=== PATIENT | male | born 1985 | race Caucasian/White ===

== ENCOUNTER → 2019-09-02 | Outpatient (REF) | payer OTHER ==
[~2019-09-02] MED LIST: No Historical Meds
[2019-09-02 17:33] LABS: BASO # 0.1 10^3/uL (0.0-0.2); BASO % 1.1 % (0.0-1.0); EOS # 0.6 10^3/uL (0.0-0.5); HEMATOCRIT 48.9 % (42.0-52.0); LYMPH # 2.1 10^3/uL (1.5-5.0); LYMPH % 25.6 % (24.0-44.0); MEAN CORPUSCULAR HEMOGLOBIN 31.4 pg (27.0-33.0); MEAN CORPUSCULAR HGB CONC 32.7 g/dl (32.0-36.5); MEAN CORPUSCULAR VOLUME 95.9 fl (80.0-96.0); MONO # 0.7 10^3/uL (0.0-0.8); MONO % 8.7 % (0.0-5.0); NEUTROPHILS # 4.7 10^3/uL (1.5-8.5); NEUTROPHILS % 56.5 % (36.0-66.0); PLATELET COUNT, AUTOMATED 258 10^3/uL (150-450); WHITE BLOOD COUNT 8.3 10^3/uL (4.0-10.0)
[2019-09-02 17:51] LABS: ALBUMIN 3.8 GM/DL (3.2-5.2); ALT/SGPT 36 U/L (12-78); BILIRUBIN,TOTAL 0.3 MG/DL (0.2-1.0); BLOOD UREA NITROGEN 11 MG/DL (7-18); CALCIUM LEVEL 9.4 MG/DL (8.5-10.1); CARBON DIOXIDE LEVEL 27 MEQ/L (21-32); CHLORIDE LEVEL 110 MEQ/L (98-107); CREATININE FOR GFR 0.74 MG/DL (0.70-1.30); FREE T4 1.04 NG/DL (0.76-1.46); GLOMERULAR FILTRATION RATE > 60.0 (>60); GLUCOSE, FASTING 101 MG/DL (70-100); POTASSIUM SERUM 4.4 MEQ/L (3.5-5.1); SODIUM LEVEL 140 MEQ/L (136-145); THYROID STIMULATING HORMONE 0.553 uIU/ML (0.358-3.740); TOTAL PROTEIN 7.1 GM/DL (6.4-8.2)
[2019-09-02 17:53] LABS: FOLATE > 24.0 NG/ML; TOTAL 25(OH) VITAMIN D 24.8 NG/ML (30.0-100.0); VITAMIN B12 LEVEL 482 PG/ML
== END ==
LOC: M SFHCPLAZ 14:19
PROVIDERS: ATTEND Nurse Practitioner Family
DX: R53.82 Chronic fatigue, unspecified (principal); F32.9 Major depressive disorder, single episode, unspecified

== ENCOUNTER → 2021-01-19 | Outpatient (REF) | payer OTHER ==
[~2021-01-19] MED LIST changes: +ZOLO100T
[2021-01-19 17:01] LABS: HEMATOCRIT 49.2 % (42.0-52.0); HEMOGLOBIN 15.7 g/dl (13.5-17.5); MEAN CORPUSCULAR HEMOGLOBIN 29.7 pg (27.0-33.0); MEAN CORPUSCULAR HGB CONC 31.9 g/dl (32.0-36.5); MEAN CORPUSCULAR VOLUME 93.2 fl (80.0-96.0); PLATELET COUNT, AUTOMATED 236 10^3/uL (150-450); RED BLOOD COUNT 5.28 10^6/uL (4.30-6.10); WHITE BLOOD COUNT 8.3 10^3/uL (4.0-10.0)
[2021-01-19 17:18] LABS: ALBUMIN 3.8 GM/DL (3.2-5.2); ALT/SGPT 24 U/L (12-78); BILIRUBIN,TOTAL 0.5 MG/DL (0.2-1.0); BLOOD UREA NITROGEN 16 MG/DL (7-18); CALCIUM LEVEL 8.8 MG/DL (8.5-10.1); CARBON DIOXIDE LEVEL 23 MEQ/L (21-32); CHLORIDE LEVEL 109 MEQ/L (98-107); CREATININE FOR GFR 0.88 MG/DL (0.70-1.30); GLOMERULAR FILTRATION RATE > 60.0 (>60); GLUCOSE, FASTING 92 MG/DL (70-100); POTASSIUM SERUM 4.1 MEQ/L (3.5-5.1); SODIUM LEVEL 140 MEQ/L (136-145); TOTAL PROTEIN 7.1 GM/DL (6.4-8.2)
[2021-01-19 17:25] LABS: TOTAL 25(OH) VITAMIN D 25.6 NG/ML (30.0-100.0)
== END ==
LOC: M WUC 16:05
PROVIDERS: ATTEND Nurse Practitioner Family
DX: H60.11 Cellulitis of right external ear (principal); E55.9 Vitamin D deficiency, unspecified; R07.89 Other chest pain

== ENCOUNTER 2021-03-15 17:39 | Emergency (ER) | payer OTHER ==
[~2021-03-15] VITALS: Ht 172.7 cm; Wt 83.2 kg
[~2021-03-15 17:39] MED LIST changes: -ZOLO100T
[2021-03-15 17:40] VITALS: BP 124/76
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
--- OUTSIDE RECORDS SUMMARY | 2021-03-15 17:48 | CCD ---
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 Name Role Phone NO, PCP Unavailable Unavailable Hospital Lab, Area [facility] Unavailable Unavailable Yossi BARRETT MD Unavailable Unavailable Yossi BARRETT MD Unavailable Unavailable Yossi BARRETT MD Unavailable Unavailable Yossi BARRETT MD Unavailable Unavailable Yossi BARRETT MD Unavailable Unavailable Yossi BARRETT MD Unavailable Unavailable Yossi BARRETT MD Unavailable Unavailable Yossi BARRETT MD Unavailable Unavailable Yossi BARRETT MD Unavailable Unavailable Yossi BARRETT MD Unavailable Unavailable Yossi BARRETT MD Unavailable Unavailable Yossi BARRETT MD Unavailable Unavailable Yossi BARRETT MD Unavailable Unavailable Yossi BARRETT MD Unavailable Unavailable Yossi BARRETT MD Unavailable Unavailable Yossi BARRETT MD Unavailable Unavailable Yossi BARRETT MD Unavailable Unavailable Yossi BARRETT MD Unavailable Unavailable Yossi BARRETT MD Unavailable Unavailable Yossi BARRETT MD Unavailable Unavailable Yossi BARRETT MD Unavailable Unavailable Yossi BARRETT MD Unavailable Unavailable Yossi BARRETT MD Unavailable Unavailable Yossi BARRETT MD Unavailable Unavailable MCMANUS, G EDWARD RPA Unavailable Unavailable MCMANUS, G EDWARD RPA Unavailable Unavailable MCMANUS, G EDWARD RPA Unavailable Unavailable MCMANUS, G EDWARD RPA Unavailable Unavailable MCMANUS, G EDWARD RPA Unavailable Unavailable MCMANUS, G EDWARD RPA Unavailable Unavailable MCMANUS, G EDWARD RPA Unavailable Unavailable MCMANUS, G EDWARD RPA Unavailable Unavailable MCMANUS, G EDWARD RPA Unavailable Unavailable MCMANUS, G EDWARD RPA Unavailable Unavailable MCMANUS, G EDWARD RPA Unavailable Unavailable MCMANUS, G EDWARD RPA Unavailable Unavailable MCMANUS, G EDWARD RPA Unavailable Unavailable MCMANUS, G EDWARD RPA Unavailable Unavailable MCMANUS, G EDWARD RPA Unavailable Unavailable MCMANUS, G EDWARD RPA Unavailable Unavailable MCMANUS, G EDWARD RPA Unavailable Unavailable MCMANUS, G EDWARD RPA Unavailable Unavailable MCMANUS, G EDWARD RPA Unavailable Unavailable MCMANUS, G EDWARD RPA Unavailable Unavailable MCMANUS, G EDWARD RPA Unavailable Unavailable MCMANUS, G EDWARD RPA Unavailable Unavailable MCMANUS, G EDWARD RPA Unavailable Unavailable MCMANUS, G EDWARD RPA Unavailable Unavailable MCMANUS, G EDWARD RPA Unavailable Unavailable MCMANUS, G EDWARD RPA Unavailable Unavailable MCMANUS, G EDWARD RPA Unavailable Unavailable MCMANUS, G EDWARD RPA Unavailable Unavailable MCMANUS, G EDWARD RPA Unavailable Unavailable MCMANUS, G EDWARD RPA Unavailable Unavailable MCMANUS, G EDWARD RPA Unavailable Unavailable MCMANUS, G EDWARD RPA Unavailable Unavailable MCMANUS, G EDWARD RPA Unavailable Unavailable MCMANUS, G EDWARD RPA Unavailable Unavailable MCMANUS, G EDWARD RPA Unavailable Unavailable Chavarria, M Barratt PA Unavailable Unavailable Deon, M Ednaatt PA Unavailable Unavailable Deon, M Ednaatt PA Unavailable Unavailable Deon, Barbara Bishopatt PA Unavailable Unavailable Deon, Barbara Bishopatt PA Unavailable Unavailable Deon, Barbara Bishopatt PA Unavailable Unavailable Deon, Barbara Bishopatt PA Unavailable Unavailable Chavarria, M Ednaatt PA Unavailable Unavailable Chavarria, M Ednaatt PA Unavailable Unavailable Deon, Barbara Bishopatt PA Unavailable Unavailable Deon, Barbara Bishopatt PA Unavailable Unavailable Deon, Barbara Bishopatt PA Unavailable Unavailable Barbara Chavarriaatt PA Unavailable Unavailable Barbara Chavarriaatt PA Unavailable Unavailable Chavarria, M Barratt PA Unavailable Unavailable Chavarria, M Barratt PA Unavailable Unavailable Chavarria, M Barratt PA Unavailable Unavailable Chavarria, M Barratt PA Unavailable Unavailable Chavarria, M Barratt PA Unavailable Unavailable Chavarria, M Barratt PA Unavailable Unavailable Chavarria, M Barratt PA Unavailable Unavailable Chavarria, M Barratt PA Unavailable Unavailable Chavarria, M Barratt PA Unavailable Unavailable Chavarria, M Barratt PA Unavailable Unavailable Chavarria, M Barratt PA Unavailable Unavailable Chavarria, M Barratt PA Unavailable Unavailable Chavarria, M Barratt PA Unavailable Unavailable Chavarria, M Barratt PA Unavailable Unavailable Chavarria, M Barratt PA Unavailable Unavailable NOT, SPECIFIED Unavailable Unavailable Staley, M Christopher PA-C Unavailable Unavailable Staley, M Christopher PA-C Unavailable Unavailable Staley, M Christopher PA-C Unavailable Unavailable Staley, M Christopher PA-C Unavailable Unavailable Staley, M Christopher PA-C Unavailable Unavailable Staley, M Christopher PA-C Unavailable Unavailable Staley, M Christopher PA-C Unavailable Unavailable Staley, M Christopher PA-C Unavailable Unavailable Staley, M Christopher PA-C Unavailable Unavailable Staley, M Christopher PA-C Unavailable Unavailable Staley, M Christopher PA-C Unavailable Unavailable Staley, M Christopher PA-C Unavailable Unavailable Staley, M Christopher PA-C Unavailable Unavailable Staley, M Christopher PA-C Unavailable Unavailable Staley, M Christopher PA-C Unavailable Unavailable Staley, M Christopher PA-C Unavailable Unavailable Staley, M Christopher PA-C Unavailable Unavailable Staley, M Christopher PA-C Unavailable Unavailable Staley, M Christopher PA-C Unavailable Unavailable Staley, M Christopher PA-C Unavailable Unavailable Staley, M Christopher PA-C Unavailable Unavailable Staley, M Christopher PA-C Unavailable Unavailable Staley, M Christopher PA-C Unavailable Unavailable Staley, M Christopher PA-C Unavailable Unavailable Staley, M Christopher PA-C Unavailable Unavailable Staley, M Christopher PA-C Unavailable Unavailable Yossi APPIAH MD Unavailable Unavailable Yossi APPIAH MD Unavailable Unavailable Yossi APPIAH MD Unavailable Unavailable Yossi APPIAH MD Unavailable Unavailable Yossi APPIAH MD Unavailable Unavailable Yossi APPIAH MD Unavailable Unavailable Yossi APPIAH MD Unavailable Unavailable Yossi APPIAH MD Unavailable Unavailable Yossi APPIAH MD Unavailable Unavailable Yossi APPIAH MD Unavailable Unavailable Yossi APPIAH MD Unavailable Unavailable Re-disclosure Warning The records that you are about to access may contain information from federally-assisted alcohol or drug abuse programs. If such information is present, then the following federally mandated warning applies: This information has been disclosed to you from records protected by federal confidentiality rules (42 CFR part 2). The federal rules prohibit you from making any further disclosure of this information unless further disclosure is expressly permitted by the written consent of the person to whom it pertains or as otherwise permitted by 42 CFR part 2. A general authorization for the release of medical or other information is NOT sufficient for this purpose. The Federal rules restrict any use of the information to criminally investigate or prosecute any alcohol or drug abuse patient.The records that you are about to access may contain highly sensitive health information, the redisclosure of which is protected by Article 27-F of the [facility] Public Health law. If you continue you may have access to information: Regarding HIV / AIDS; Provided by facilities licensed or operated by the [facility] Office of Mental Health; or Provided by the [facility] Office for People With Developmental Disabilities. If such information is present, then the following [facility] mandated warning applies: This information has been disclosed to you from confidential records which are protected by state law. State law prohibits you from making any further disclosure of this information without the specific written consent of the person to whom it pertains, or as otherwise permitted by law. Any unauthorized further disclosure in violation of state law may result in a fine or care home sentence or both. A general authorization for the release of medical or other information is NOT sufficient authorization for further disc losure. Encounters Encounter Providers Location Date Indications Data Source(s ) Unknown [address] [facility] [address] 01/24/2021 12:00:00 AM EDT eCW1 ([facility]) Out[place] [address] [facility] [address] 01/19/2021 12:00:00 AM EDT eCW1 ([facility]) Outpatient Attender: [facility] 12/19/2020 02:0 5:00 PM EDT [facility] Emergency Attender: SHELLEY Perla MDConsultant: PCP NOConsultant: SPECIFIED NOT 12/19/2020 01:46:00 PM EDT - 12/19/2020 05:26:00 PM EDT [facility] Patient discharged. Outpatient Attender: YANELY MCMANUS [facility] 12/17 05:03:01 PM EDT - 12/17/2020 05:54:08 PM EDT [facility] ([facility] ) [place] [address] [facility] [address] 12/17/2020 12:00:00 AM EDT eCW1 ([facility]) Outpatient 12/13/2020 06:25:38 PM EDT [facility] ([facility]) Outpatient Attender: YANELY MCMANUS [facility] 12/11 10:57:58 AM EDT - 12/11/2020 01:15:27 PM EDT [facility] ([facility] ) Outpatient Attender: Apolinar OBANDO-Tushar: COLTON BARRETT MD 12/10/2020 04:27:05 PM EDT [facility] ([facility]) Unknown [address] [facility] [address] 10/13/2020 12:00:00 AM EDT eCW1 ([facility]) Unknown [address] [facility] [address] 09/17/2020 12:00:00 AM EDT eCW1 ([facility]) Outpatient Attender: Abe OBANDO Physical Therapy 12:15:00 PM EST [facility] ([facility]) TeleMedicine Phone E/M by Phys 11-20 Min [address] [place] [address] 03/12/2020 12:00:00 AM EDT eCW1 ([facility]) Outpatient Attender: Abe OBANDO Physical Therapy 01:15:00 PM EDT [facility] ([facility]) [place] [address] [facility] [address] 02/27/2020 12:00:00 AM EDT eCW1 ([facility]) Immunizations Vaccine Date Status Description Data Source(s) COVID-19 dose #1 given elsewhere Unspecified 12/17/2020 03:1 2:00 PM EDT completed eCW1 ([facility]) COVID-19 dose #2 given elsewhere Unspecified 12/17/2020 03:1 2:00 PM EDT completed eCW1 ([facility]) COVID-19 dose #1 given elsewhere Unspecified 12/17/2020 03:1 2:00 PM EDT completed eCW1 ([facility]) COVID-19 dose #2 given elsewhere Unspecified 12/17/2020 03:1 2:00 PM EDT completed eCW1 ([facility]) COVID-19 dose #1 given elsewhere Unspecified 12/17/2020 03:1 2:00 PM EDT completed eCW1 ([facility]) COVID-19 dose #2 given elsewhere Unspecified 12/17/2020 03:1 2:00 PM EDT completed eCW1 ([facility]) COVID-19 VACCINE Pfizer 10/19/2020 12:00:00 AM EDT completed [facility] Vaccine Series Complete: YESThis Data wa s Submitted to [facility]. COVID-19 VACCINE Pfizer 09/28/2020 12:00:00 AM EDT completed [facility] Vaccine Series Complete: NOThis Data was Submitted to [facility]. Medications Medication Brand Name Start Date Product Form Dose Route Admi nistrative Instructions Pharmacy Instructions Status Indications Reaction Description Data Source(s) 800-160 mg 12/11/2020 12:00:00 AM EDT tablet 20 TAKE ONE TABLET BY MOUTH TWICE A DAY FOR 10 DAYS TAKE ONE TABLET BY MOUTH TWICE A DAY FOR 10 DAYS SOLD: 12/12/2020 [facility] 50 mg 12/09/2020 12:00:00 AM EDT tablet 30 TAKE ONE TABLET BY MOUTH EVERY DAY TAKE ONE TABLET BY MOUTH EVERY DAY SOLD: 12/12/2020 [facility] 50 mg 11/16/2020 12:00:00 AM EDT tablet 30 TAKE ONE TABLET BY MOUTH EVERY DAY TAKE ONE TABLET BY MOUTH EVERY DAY SOLD: 11/21/2020 [facility] 875 mg 10/13/2020 12:00:00 AM EDT tablet 14 TAKE ONE TABLET BY MOUTH EVERY 12 HOURS TAKE ONE TABLET BY MOUTH EVERY 12 HOURS SOLD: 10/13/2020 [facility] 50 mg 10/09/2020 12:00:00 AM EDT tablet 30 TAKE ONE TABLET BY MOUTH EVERY DAY TAKE ONE TABLET BY MOUTH EVERY DAY SOLD: 10/12/2020 [facility] 50 mg 08/30/2020 12:00:00 AM EDT tablet 30 TAKE ONE TABLET BY MOUTH EVERY DAY TAKE ONE TABLET BY MOUTH EVERY DAY SOLD: 09/02/2020 [facility] 50 mg 06/22/2020 12:00:00 AM EST tablet 30 TAKE ONE TABLET BY MOUTH EVERY DAY TAKE ONE TABLET BY MOUTH EVERY DAY SOLD: 07/07/2020 [facility] 50 mg 05/21/2020 12:00:00 AM EST tablet 30 TAKE ONE TABLET BY MOUTH EVERY DAY TAKE ONE TABLET BY MOUTH EVERY DAY SOLD: 06/04/2020 [facility] 1,250 mcg (50,000 unit) 03/26/2020 12:00:00 AM EST capsule 4 TAKE ONE CAPSULE BY MOUTH EVERY WEEK WITH A MEAL TAKE ONE CAPSULE BY MOUTH EVERY WEEK WITH A MEAL SOLD: 07/18/2020 [facility] 1,250 mcg (50,000 unit) 03/26/2020 12:00:00 AM EST capsule 4 TAKE ONE CAPSULE BY MOUTH EVERY WEEK WITH A MEAL TAKE ONE CAPSULE BY MOUTH EVERY WEEK WITH A MEAL SOLD: 03/26/2020 [facility] 1,250 mcg (50,000 unit) 03/26/2020 12:00:00 AM EST capsule 4 TAKE ONE CAPSULE BY MOUTH EVERY WEEK WITH A MEAL TAKE ONE CAPSULE BY MOUTH EVERY WEEK WITH A MEAL SOLD: 06/04/2020 [facility] 50 mg 03/13/2020 12:00:00 AM EDT tablet 30 TAKE ONE TABLET BY MOUTH EVERY DAY TAKE ONE TABLET BY MOUTH EVERY DAY SOLD: 03/26/2020 [facility] Sertraline 50 MG Oral Tablet Sertraline HCl 50 MG Sertraline HCl 50 MG 03/12/2020 12:00:00 AM EDT 1.0 {tablet} active Sertraline HCl 50 MG eCW1 ([facility]) Sertraline 50 MG Oral Tablet Sertraline HCl 50 MG Sertraline HCl 50 MG 03/12/2020 12:00:00 AM EDT 1.0 {tablet} active Sertraline HCl 50 MG eCW1 ([facility]) 500 mg 02/28/2020 12:00:00 AM EDT tablet 60 TAKE ONE TABLET BY MOUTH TWICE A DAY TAKE ONE TABLET BY MOUTH TWICE A DAY SOLD: 02/28/2020 [facility] Naproxen 500 MG Oral Tablet Naproxen 02/27/2020 12:00:00 AM EDT active [facility] ([facility]) 25 mg 02/27/2020 12:00:00 AM EDT tablet 30 TAKE ONE TABLET BY MOUTH EVERY EVENING TAKE ONE TABLET BY MOUTH EVERY EVENING SOLD: 02/28/2020 [facility] 4 % 11/14/2019 12:00:00 AM EDT adhesive patch,medicate d 10 APPLY ONCE PER DAY FOR 15 DAY, KEEP ON FOR 12 HOURS AND THEN KEEP OFF FOR 12 HOURS APPLY ONCE PER DAY FOR 15 DAY, KEEP ON FOR 12 HOURS AND THEN KEEP OFF FOR 12 HOURS SOLD: 01/18/2020 [facility] Escitalopram 10 MG Oral Tablet ESCITALOPRAM OXALATE 10/18/2019 1 2:00:00 AM EDT tablet 30 TAKE ONE TABLET BY MOUTH EVERY D AY TAKE ONE TABLET BY MOUTH EVERY DAY SOLD: 01/18/2020 [facility] Insurance Providers Payer name Policy type / Coverage type Policy ID Covered libertarian ID Covered libertarian's relationship to hart Policy Hart Plan Information Medicaid S [id number] S [id number] [facility] P [id number] S [id number] [employer] (FIRST ADVANTAGE) emp [id number] Employee [id number] [employer] 136 emp [id number] Employee [id number] [employer] [place] emp [id number] Employee [id number] [facility] 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 [id number] Self [id number] [facility] 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 [id number] Self [id number] [facility] XIX -[id number] 18 [id number] [facility] [id number] SP [id number] [facility] COMMUNITY PLAN [facility] [id number] SP [id number] SELF PAY UNAVAILABLE SP UNAVAILA BLE [facility] [id number] SP [id number] [facility] [id number] SP [id number] [facility] [id number] SP [id number] [facility] O [id number] S [id number] O UNAVAILABLE UNAVAILA BLE [facility] HEA [id number] S [id number] [employer] XIX -[facility] [id number] Problems, Conditions, and Diagnoses Code Display Name Description Problem Type Effective Dates Data Source(s) X02514 CONTACT WITH AND SUSPECTED EXPOSURE TO C OVID-19 CONTACT WITH AND SUSPECTED EXPOSURE TO COVID-19 Diagnosis 12/19/2020 01:46:00 PM EDT [facility] [id number] Nicotine dependence, cigarettes, uncompl icated Nicotine dependence, cigarettes, uncomplicated Diagnosis 12/19/2020 01:46:00 PM EDT [facility] R509 Fever, unspecified Fever, unspecified Diagnosis 01:46:00 PM EDT [facility] Z87.442 [id number] History of kidney stones Problem 12/17/2020 12:00:00 AM EDT eCW1 ([facility]) Surgeries/Procedures No Information Results ID Date Data Source [id number] 12/19/2020 01:46:00 PM EDT [facility] 1 OrderSheet [facility] Emergency Department [address] [place] [address] Phone #: ext- [phone] 12/19/2020 13:42 Patient: YANELY BOWENS Sex: M : 1985 Age: 35yWEIGHT:79.8 kg (S) HEIGHT:68 inches (S) BMI:26.8ALLERGIES: No Known Drug AllergyCHIEF COMPLAINT: feverDIAGNOSIS: Fever, Severe acute respiratory syndrome coronavirusLAB ORDERSOrder Description Priority Entered Acknowledged InitialedCBC w Diff STAT 13:59 12/19/2020 14:26 Shelley Neville RN ;CMP STAT 13:59 12/19/2020 14:26 Shelley Neville RN ;Sed. Rate STAT 13:59 12/19/2020 14:26 Shelley Neville RN ;Urinalysis (Clean STAT 13:59 12/19/2020 15:23 DorisCatch) Shelley Appiah RN ;Cholesterol STAT 13:59 12/19/2020 Initialed: 14:00 Shelley Appiah Victoria Cancelled: Wrong Order 14:00 ; Shelley AppiahBlood Culture STAT 14:00 14:26 [id number] X2 (Sched Shelley Appiah RN14:00 12/19/2020) ;Blood Culture STAT 14:00 12/19/2020 14:26 [id number] X2 (Sched Shelley Appiah RN14:10 12/19/2020) ;Lactic Acid STAT 14:00 12/19/2020 14:26 Shelley Neville RN ;COVID-19 CAH STAT 16:12 12/19/2020 Initialed: 16:16 Shelley Appiah(Symptomatic as Shelley Appiah Cancelled: Wrong Order 16:16Defined by [facility]) ; Shelley Appiah(12/12/20) (Not FirstTest) (NotHospitalized) (Not) (NotResident in 2 OrderSheet [facility] Emergency Department [address] [place] [address] Phone #: ext- [phone] 12/19/2020 13:42 Patient: YANELY BOWENS Sex: M : 1985 Age: 35yCongregate CareSetting) (NotEmployed inHealthcare Setting)CORONAVIRUS STAT 16:17 12/19/2020 17:14 DorisCOVID-19 Shelley Appiah RN(Symptomatic as ;Defined by CDC)(12/12/20) (Not FirstTest) (NotHospitalized) (Not) (NotResident inCongregate CareSetting) (NotEmployed inHealthcare Setting)DIAGNOSTIC STUDY ORDERSOrder Description Priority Entered Acknowledged InitialedChest Portable 1 STAT 14:20 12/19/2020 14:26 Shelley Guzman RN(Oxygen?(No)) ; Reason for Study: feverMEDICATION/IV/DRIP/FLUID ORDERSOrder Description Priority Entered Acknowledged InitialedNS IV Bolus 30 14:11 12/19/2020 15:25 DorismL/kg over 1 hour: Shelley Appiah RN: Bolus 30 mL/kg ;(X1)Tylenol PO 650 mg 14:20 12/19/2020 15:23 Camila(NOW) Shelley Appiah RN ;GENERAL ORDERSOrder Description Priority Entered Acknowledged InitialedSaline Lock 13:59 12/19/2020 15:23 Shelley Neville RN ;[Electronically signed by Camila Roth RN (17:30 12/19/2020)][Stephanie ctronically signed by Shelley Appiah (18:33 12/19/2020)][Electronically locked by Camila Roth RN (17:30 12/19/2020)] 3 OrderSheet [facility] Emergency Department [address] [place] [address] Phone #: ext- [phone] 12/19/2020 13:42 Patient: YANELY BOWENS Sex: M : 1985 Age: 35y Name Value Range Interpretation Code Description Data Malena rce(s) Supporting Document(s) ID Date Data Source [id number] 12/19/2020 01:46:00 PM EDT [facility] 1 Medication Reconciliation Report [facility] Emergency Department [address] [place] [address] Phone #: ext [phone] 12/19/2020 13:42 Patient: YANELY BOWENS Sex: M : 1985 Age: 35yWeight: 79.8 kgHeight/Length: 68 in.BMI: 26.8ALLERGIES: No Known Drug AllergyThe patient's Home Medications are listed below:THE FOLLOWING MEDICATIONS NEED TO BE RECONCILED: Bactrim DS Oral (800- 160 mg) 1 tablet, 2x a day, last dose: 12/19 Vitamin D Oral IU, once a week Zoloft Oral (100 mg) 1 tablet, dailyThe source(s) of the original Home Medication information:Not obtained.The following Medications were given to the patient in the Emergency Department:Tylenol [PO] PO 650 mg, administered: 15:13 12/19/2020IV NS w/ bolus IV Fluids bolus 1000 mL over 1 hour(s), then 1000 mL/hr, administered: 15:19 12/19/2020The following Medications were prescribed to the patient:None. Name Value Range Interpretation Code Description Data Malena rce(s) Supporting Document(s) ID Date Data Source [id number] 12/19/2020 01:46:00 PM EDT [facility] 1 Medication Administration Record [facility] Emergency Department [address] [place] [address] Phone #: ext [phone] 12/19/2020 13:42 Patient: YANELY BOWENS Sex: M : 1985 Age: 35yWeight: 79.8 kgHeight/Length: 68 inBMI: 26.8ALLERGIES: No Known Drug Allergy Date/Time Medication Administered Medication OrderedStart IV NS W/ BOLUS NS IV Bolus 30 mL/kg over 1 hour:15:19 12/19/2020 Dose: IV Fluids : Bolus 30 mL/kg (X1)Camila Roth RN Rate: 1000 mL/hr over 1 hour(s)---- Bolus: 1000 mL over 1 hour(s)Stop Dispensed: 1000 mL bag16:19 12/19/2020 Site: #1 right Willa Roth RNGiven TYLENOL [PO] (APAP) Tylenol PO 650 mg (NOW)15:13 12/19/2020 Dose: 650 mg Tablets Dirk Roth RN Name Value Range Interpretation Code Description Data Malena rce(s) Supporting Document(s) ID Date Data Source [id number] 12/19/2020 01:46:00 PM EDT [facility] 1 General Instructions [facility] Emergency Department [address] [place] [address] Phone #: ext- [phone] 12/19/2020 13:42 Patient: YANELY BOWENS Sex: M : 1985 Age: 35y Acute fever Coronavirus COVID-19 presumed (confirmatory testing pending).INSTRUCTIONS Alternate Tylenol (Acetaminophen) and Motrin (Ibuprofen) for fever, temperature. Take according to label instructions. Do not work for ten days. (your CBC, CXR and urinalysis were normal. we have no source of your fever. we are testing you for COVID to make sure this is not the source of your fever. quarantine yourself x 10 days or until results of COVID comes back negative). Follow-up: Follow up with your healthcare provider in three days if not better. Reason for referral: evaluation. Summary of care provided to patient via paper. ADDITIONAL INFORMATIONFebrile Illness with Uncertain Cause (Adult)You have a fever, but the cause is unknown. A fever is the body's natural reaction to an illness suchas infection due to a virus or bacteria. Sometimes other conditions such as cancer or immunediseases can cause fever. This might be more likely if your fever has lasted for more than a week or2. In most cases, the higher temperature itself isn't harmful. It actually helps the body fight infections.A fever doesn't need to be treated unless you feel very uncomfortable.Sometimes a fever can be an early sign of a more serious infection. So follow up if your conditiongets worse.Home careUnless given other instructions by your healthcare provider, follow these guidelines when caring foryourself at home.General care If your symptoms are not severe, rest at home for the first 2 to 3 days. When you are active again, don't let yourself get too tired. 2 General Instructions [facility] Emergency Department [address] [place] [address] Phone #: ext- [phone] 12/19/2020 13:42 Patient: YANLEY BOWENS Sex: M : 1985 Age: 35y For your overall health, don't smoke. Also stay away from secondhand smoke. You may not feel like eating too much. So a light diet is fine. Stay hydrated by drinking 6 to 8 glasses of fluids per day. This includes water, soft drinks, sports drinks, juices, tea, or soup. If you have congestion, extra fluids will help loosen secretions in the nose and lungs.Medicines You can take acetaminophen or ibuprofen for pain or to lower your temperature, unless you were given a different medicine to use. If you have chronic liver or kidney disease or have ever had a stomach ulcer or gastrointestinal bleeding, talk with your healthcare provider before using these medicines. Also talk with your provider if you are taking medicine to prevent blood clots. Don't give aspirin to anyone younger than age 19 unless directed by the provider. It may cause a serious illness called Ricco syndrome. This most often affects the brain and liver. If you were given antibiotics for an infection, take them until they are used up, or your healthcare provider tells you to stop. It's important to finish the antibiotics even if you feel better. This is to make sure the infection has cleared. Antibiotics are not often given for a viral infection or a fever with an unknown cause. Pnbi-fle-xusebaf medicines will not shorten the length of the illness. But they may be help with symptoms. These include cough, sore throat, or nasal and sinus congestion. Ask your pharmacist for product suggestions. Don't use decongestants if you have high blood pressure.Follow-up careFollow up with your healthcare provider, or as advised. If a culture or other lab tests were done, you will be told if your treatment needs to be changed. Call your healthcare provider as directed for the results. If X-rays, a CT scan, MRI, or an ultrasound were done, a specialist will review them. You will be told of any findings that may affect your care. Call your healthcare provider as directed for the results.Call [phone] any of these occur: Trouble breathing or swallowing, or wheezing Chest pain Confusion Extreme dr owsiness or trouble waking up 3 General Instructions [facility] Emergency Department [address] [place] [address] Phone #: ext- [phone] 12/19/2020 13:42 Patient: YANELY BOWENS Sex: M : 1985 Age: 35y Fainting or loss of consciousness Fast heart rate Low blood pressure Vomiting blood, or large amounts of blood in stool SeizureWhen to get medical adviceCall your healthcare provider right away if any of these occur: Cough with lots of colored sputum (mucus) or blood in your sputum Severe headache Face, neck, throat, or ear pain Feeling drowsy Belly pain Repeated vomiting or diarrhea; bloody diarrhea Joint pain or a new rash B urning when urinating Fever of 100.4F (38C) or higher, or as directed by your provider Shaking chills Feeling weak or dizzy [employer]. [address] [place] [address]. All rights reserved. This information is not intended as asubstitute for professional medical care. Always follow your healthcare professional's instructions.Fever Control (Adult)A fever is a normal reaction of your body to an illness. The temperature itself usually isn't harmful. Itactually helps your body fight infections. You don't need to treat a fever unless you feel veryun comfortable.Home careFollow these tips to take care of yourself at home: 4 General Instructions [facility] Emergency Department [address] [place] [address] Phone #: ext- [phone] 12/19/2020 13:42 Patient: YANELY BOWENS Sex: M : 1985 Age: 35y If you feel warm, check your temperature. Dress in light clothing. This will help you lose extra body heat through your skin. The fever will go up if you wear extra layers or wrap in blankets. Fever causes your body to lose water through evaporation. Drink plenty of fluids. These include water, juice, clear sodas, crissy moiz, or lemonade.Fever medicinesYou can take acetaminophen every 4 to 6 hours if: You feel very uncomfortable Your oral temperature is 100.4F (38C) or higherIf you can't take or keep down oral medicine, ask your pharmacist for acetaminophen suppositories.You don't need a prescription for these.If the fever doesn't get better within 1 hour after you take acetaminophen, take ibuprofen. If thisworks, keep taking the ibuprofen every 6 to 8 hours.If you have chronic liver or kidney disease, talk with your healthcare provider before taking thesemedicines. Also talk with your provider if you ever had a stomach ulcer or GI (gastrointestinal)bleeding.If either medicine alone doesn't keep the fever down, you may switch off between the 2 medicinesevery 3 to 4 hours. But do this only if your healthcare provider has told you to. For example, takeibuprofen. Wait 3 hours. Then take acetaminophen. Wait 3 hours. Take ibuprofen, and so on. Followyour provider's instructions exactly.Don't give aspirin to anyone younger than age 19 who is ill with a fever. Aspirin can cause seriousside effects such as liver damage and Ricco syndrome. Although rare, Ricco syndrome is a veryserious illness usually found in children younger than age 15. The syndrome is closely linked to theuse of aspi rin or aspirin-containing medicine during viral infection.Follow-up careFollow up with your healthcare provider if you don't get better after 48 hours.When to seek medical adviceCall your healthcare provider right away if any of these occur: Fever, as directed by your healthcare provider, or: o Fever of 100.4F (38C) or above lasting for 24 to 48 hours 5 General Instructions [facility] Emergency Department [address] [place] [address] Phone #: ext- [phone] 12/19/2020 13:42 Patient: YANELY BOWENS Sex: M : 1985 Age: 35y o Fever lasting more than 3 days, even without other symptoms o Fever that happens after visiting a foreign country o Fever that happens within a month after visiting a country with malaria. Malaria is a serious illness. A fever can still be malaria even if you took medicine to prevent it. The medicine does not work in all cases o If you experience unexplained fever and your immune system is compromised such as by immune suppressing drugs, stem cell or organ transplant, HIV/AIDS, or cancer Confusion or trouble thinking Headache or stiff neck Flat, small, purplish red spots on your skin Low blood pressure Fast heart rate Fast (rapid) breathing You are You just had surgery, another medical procedure, or were just discharged from the hospital Use of medicines that suppress the immune system (immunosuppressants). These include steroids like prednisone, cancer medicines, and organ transplant rejection medicines. If you are not sure about whether your medicines suppress your immune system, ask your healthcare provider.Call 911Someone should call 911 if you: Are having trouble breathing or shortness of breath Are unresponsiveImportant reminderCall your healthcare provider if you get a fever after visiting a place where infectious diseases arecommon. Many people flower buncher or picker a cold or other virus while traveling. This usually goes away without aproblem. But, some places have more serious diseases. Fever with certain other symptoms maymean you have a serious illness. Symptoms to watch for include diarrhea, skin rashes, insect bites,and skin boils, or infections. Your provider may ask you: 6 General Instructions [facility] Emergency Department [address] [place] [address] Phone #: ext- [phone] 12/19/2020 13:42 --- Patient: YANELY BOWENS Sex: M : 1985 Age: 35y What you did on your trip How long you were there Where you travelled and where you stayed (hotel, [facility] house, tent) What you ate and drank If you were bitten by insects or other bugs If you swam in freshwater If you had sex or got a tattoo or piercing while you were thereCheck the CDC to get more information about specific infectious diseases in the areas you havetraveled. 8834-2792 [employer]. [address] [place] [address]. All rights reserved. This information is not intended as asubstitute for professional medical care. Always follow your healthcare professional's instructions.Understanding Coronavirus Disease 2019 (COVID-19)Coronavirus disease 2019 (COVID-19) is a virus that causes a respiratory illness. It is caused by acoronavirus called 2019 novel coronavirus (2019-nCoV). There are many types of coronavirus.Coronaviruses are a very common cause of bronchitis. They may sometimes cause lung infection(pneumonia). Symptoms can range from mild to severe respiratory illness. These viruses are alsofound in some animals. COVID- 19 was first found in people in [facility], in late 2019. In 2020,several cases of COVID-19 have been confirmed in the [place] COVID-19 is a rapidly- emerginginfectious disease. This means that scientists are actively researching it. There are informationupdates regularly.Public health officials are working to find the source. How the virus spreads is not yet fullyunderstood, but it seems to spread and infect people fairly easily. Some people who have beeninfected in an area may be unsure how or where they became infected. The virus may be spreadthrough droplets of fluid that a person coughs or sneezes into the air. It may be spread if you touch asurface with virus on it, such as a handle or object, and then touch your eyes, nose, or mouth.For the latest information, visit the CDC website at www.cdc.gov/coronavirus/2019-ncov.What are the symptoms of COVID-19?Some people have no symptoms or mild symptoms. Symptoms may appear 2 to 14 days aftercontact with the virus. Symptoms can include: Fever 7 General Instructions [facility] Emergency Department [address] [place] [address] Phone #: ext- [phone] 12/19/2020 13:42 Patient: YANELY BOWENS Sex: M : 1985 Age: 35y Coughing Trouble breathingWhat are possible complications from COVID-19?In many cases, this virus can cause infection (pneumonia) in both lungs. In some cases, this cancause .How is COVID-19 diagnosed?Your healthcare provider will ask about your symptoms. He or she will also ask about your recenttravel and contact with sick people. If your healthcare provider thinks you may have COVID-19, waldo alvarado will work closely with your local health department and the CDC on testing. Follow all instructionsfrom your healthcare provider. COVID-19 is diagnosed by: Nasal and throat swab. A cotton-tipped swab is wiped inside your nose or throat. This is done to check for viruses in your nasal mucus. Sputum culture. A small sample of mucus coughed from your lungs (sputum) is collected if you have a cough. It is checked for the virus.How is COVID-19 treated?There is currently no medicine to treat the virus. Treatment is done to help your body while it fightsthe virus. This is known as supportive care. Supportive care may include: Pain medicine. These include acetaminophen and ibuprofen. They are used to help ease pain and reduce fever. Bed rest. This helps your body fight the illness.For severe illness, you may need to stay in the hospital. Care during severe illness may include: IV (intravenous) fluids.These are given through a vein to help keep your body hydrated. Oxygen. Supplemental oxygen or ventilation with a breathing machine (ventilator) may be given. This is done so you get enough oxygen in your body.Are you at risk for COVID-19?You are at risk for infection if you've been to a place where people have been sick with this virus or ifthere are people with COVID-19 in your area. You are at risk if you: Recently traveled to an area with a COVID-19 outbreak Had contact with a sick person who recently traveled to an area with a COVID-19 outbreak 8 General Instructions [facility] Emergency Department [address] [place] [address] Phone #: ext- [phone] 12/19/2020 13:42 Patient: YANELY BOWENS Sex: M : 1985 Age: 35y Had contact with a person who was diagnosed with or who may have COVID-19How can COVID-19 be prevented?There is no vaccine yet. The best prevention is to not have contact with the virus. The CDC advisesthat people should not travel to areas where there are COVID-19 outbreaks right now for any reasonthat is not urgent. For the most current CDC travel advisories, visit the CDC website atwww.cdc.gov/coronavirus/2019-ncov/travelers.To help prevent spreading the infection, wash your hands often, or use an alcohol-based hand biological plant operator.The CDC advises that you shouldn't wear a face mask if you are not sick.To protect yourself from COVID-19: Wash your hands often with soap and clean, running w ater for at least 20 seconds. If you don't have access to soap and water, use an alcohol-based hand biological plant operator often. Make sure it has at least 60% alcohol. 9 General Instructions [facility] Emergency Department [address] [place] [address] Phone #: ext- [phone] 12/19/2020 13:42 Patient: YANELY BOWENS Sex: M : 1985 Age: 35y Don't touch your eyes, nose, or mouth unless you have clean hands. Don't have contact with people who are sick. Follow local instructions about being in public. For example, you may be told to not use public transport for a period of time. Experts don't know if animals spread 2019-nCoV. But it's always a good idea to wash your hands after touching any animals. Don't touch animals that may be sick. Don't share eating or drinking tools with sick people. Don't kiss someone who is sick. Clean surfaces often with disinfectant.If you were in an area with COVID-19 in the last 14 days: Call your healthcare provider. He or she can talk with local health staff to see what action may be needed. Follow all instructions from your provider. Take your temperature every morning and evening for at least 14 days. This is to check for fever. Keep a record of the readings. Keep watch for symptoms of the virus. Tell your provider right away if you have symptoms. Stay home if you are sick for any reason.If you were in an area with COVID-19 and have a fever or other symptoms: Stay home. Don't panic. Keep in mind that other illnesses can cause similar symptoms. Stay away from work, school, and public places. Limit physical contact with family members. Don't kiss anyone or share eating or drinking utensils. Clean surfaces you touch with disinfectant. This is to help prevent the virus from spreading. Cough or sneeze into a tissue, then throw away the tissue in the trash. Or cough or sneeze into the bend of your elbow. Wear a face mask. Call your healthcare provider. Explain that you have been exposed to COVID-19 and have symptoms. Do this before going to any hospital. Wait for instructions. Keep in mind that healthcare staff may wear protective equipment such as masks, gowns, 10 General Instructions [facility] Emergency Department [address] [place] [address] Phone #: ext- [phone] 12/19/2020 13:42 Patient: YANELY BOWENS Sex: M : 1985 Age: 35y gloves, and eye protection. You may be put in a separate room. This is to prevent the possible virus from spreading. Tell the healthcare staff about recent travel. This includes local travel on public transport. Staff may need to find other people you have been in contact with. Follow all instructions the healthcare staff give you.If you have been diagnosed with COVID-19 Stay home. Don't leave your home unless you need to get medical care. Follow all instructions from your healthcare provider. Call your [facility] provider's office before going. They can prepare and give you instructions. This will help prevent the virus from spreading. Don't go to work, school, or public areas. Don't use public transport or taxis. Stay away from other people in your home. Wear a face mask. This is to protect other people from your germs. They do not need to wear face masks. Don't share household items or food. Cover your face with a tissue when you cough or sneeze. Throw the tissue away. Then wash your hands. Wash your hands often.Caregivers should: Follow all instructions from healthcare staff. Wear protective clothing as advised. Make sure the sick person wears a mask. Wash hands often. Keep track of the sick person's symptoms. Clean surfaces, fabrics, and laundry thoroughly. Keep other people away from the sick person. 11 General Instructions [facility] Emergency Department [address] [place] [address] Phone #: ext- [phone] 12/19/2020 13:42 Patient: YANELY BOWENS Sex: M : 1985 Age: 35yWhen to call your healthcare providerCall your healthcare provider: If you've recently traveled and have symptoms If you have been diagnosed with COVID-19 and your symptoms are worse [phone] [employer]. [address] [place] [address]. All rights reserved. This information is not intended as asubstitute for professional medical care. Always follow your healthcare professional's instructions. You have been given the following additional information: Febrile Illness, Uncertain Cause (Adult) Fever Control (Adult) Coronavirus Disease 2019 (COVID- 19) Do not work for ten days.(Electronically signed by Shelley Appiah 05/2020 18:33) Name Value Range Interpretation Code Description Data Malena rce(s) Supporting Document(s) ID Date Data Source [id number] 12/19/2020 01:46:00 PM EDT [facility] 1 Clinical Report - Nurses [facility] Emergency Department [address] [place] [address] Phone #: ext- [phone] 12/19/2020 13:42 Patient: YANELY BOWENS Sex: M : 1985 Age: 35yTRIAGEArrived by private vehicle. Historian: patient.Triage time: 14:12/19/2020. Acuity: LEVEL 3.Chief Complaint: RIGHT EAR PAIN.14:04 12/19/20. Alert. No acute distress.Onset. (October 28). ( Right outer ear pain, swelling began 10/28, denies trauma, friend "lanced 2 days agoclear fluid returns" has been taking Bactrim. Fever intermittent x 1 week). He has had fever (103). Hehas had photophobia and a skin rash. 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 SEPSIS SCREEN NEGATIVE.No suspected or confirmed signs of infection present. --14:21 12/19/20 Camila Roth RN14:04 12/19/20. BP: 122/77. MAP: 92. HR: 97. RR: 16. O2 saturation: 99%. Temp: 100.7 F. Pain levelnow: 6/10. Describes the quality as aching. It has been constant. --14:21 12/19/20 Camila Roth RN.Weight: 79.8 kg stated. Height/Length: 68 inches Per Patient. BMI: 26.8. --14:03 12/19/20 Camila Roth RN.MedicationsBactrim DS Oral (Tablet 800-160 mg) 1 tablet, 2x a day, last dose 12/19. --14:10 12/19/20 Camila Roth RN Zoloft Oral (Tablet 100 mg) 1 tablet, daily. --14:10 12/19/20 Camlia Roth RN Vitamin D Oral IU, once a week. --14:11 12/19/20 Camila oRth RN.AllergiesNo Known Drug Allergy. --14:11 12/19/20 Camila Roth RN.PROBLEMS:no known problems.ADDITIONAL SURGERIES:no known surgeries.Scnpcqi24:04 12/19/20. 2 Clinical Report - Nurses [facility] Emergency Department [address] [place] [address] Phone #: ext- [phone] 12/19/2020 13:42 Patient: YANELY BOWENS Sex: M : 1985 Age: 35y PAST MEDICAL HX: Immunizations: up-to-date and (had COVID vaccine). SOCIAL HX: Light tobacco smoker (cigarette)- less than 1/2 a pack per day. Occasional alcohol use. No drug use. He was offered HIV testing but declined and hepatitis C testing but declined. He has not traveled outside the [place] Infectious disease exposure: No infectious disease exposure. The patient was not exposed to Coronavirus. (Denies travel). Patient is not a known carrier of tuberculosis, hepatitis, HIV, MRSA or VRE. Patient is not a known carrier of CRE. SELF HARM ASSESSMENT: Self harm assessment was performed. The patient answered "no" to the question(s) "Do you have thoughts of harming or killing yourself?" and "Have you recently had thoughts about harming or killing others?". ABUSE ASSESSMENT: Abuse assessment. The patient had positive responses to the question(s) "Do you feel safe in your home?" (yes). Abuse denied. No report of abuse. NUTRITIONAL RISK ASSESSMENT: The nutritional risk assessment revealed no deficiencies. FUNCTIONAL ASSESSMENT: Functional assessment: no impairments noted. LEARNING NE EDS ASSESSMENT: The learning needs assessment revealed no barriers. FALL RISK ASSESSMENT: Fall risk assessment completed. No risk factors identified. SKIN INTEGRITY ASSESSMENT: Skin integrity risk assessment completed. No skin integrity risk identified. --14:21 12/19/20 Camila Roth RN. Interventions 14:12/19/20. To treatment room. Ambulatory by family. to room 1B. --14:21 12/19/20 Camila Roth RN.PHYSICAL [id number]:12/19/20.GENERAL / NEURO / PSYCH: Alert. Appears in no acute distress.HEENT: No facial asymmetry noted. Erythema and pain upon movement of the right auricle.RESPIRATORY: Respirations not labored.SKIN: Skin is warm and dry. --14:14 12/19/20 Camila Roth RN.NURSING PROGRESS NOTES14:12/19/20. Head of bed elevated. Two patient identifiers checked. Call light placed in reach. Bedplaced in lowest position. Brakes of bed on. Patient ready for evaluation- ED physician notified. --14: Camila Roth RN 15:13 12/19/2020 Tylenol (APAP) PO Tablets 650 mg given. Allergies verified and confirmed 5 rights. 3 Clinical Report - Nurses [facility] Emergency Department [address] [place] [address] Phone #: ext- [phone] 12/19/2020 13:42 Patient: YANELY BOWENS Sex: M : 1985 Age: 35y Information reviewed with patient including reason for taking this medication, signs of allergic reaction and precautions. Verbalizes understanding. --15:23 12/19/20 Camila Roth RN 15:19 12/19/2020 Site #1 started via IV in the right antecubital space with an 20g angiocath, with aseptic technique and good blood return; one attempt. Saline lock flushed with 10 mL saline. --15:24 12/19/20 Camila Roth RN 15:19 12/19/2020 Started bag #1 1000 mL IV Fluids IV NS w/ bolus; bolus of 1000 mL over 1 hour(s) then at 1000 mL/hr over 1 hour(s) via site #1 via IV pump. Allergies verified and confirmed 5 rights. IV patency established. IV site checked: no pain, redness, or swelling. IV flushed thoroughly pre- and post-medication administration. Information reviewed with patient including reason for taking this medication, signs of allergic reaction and precautions. Verbalizes understanding. --15:12/19/20 Camila Roth RN Patient ID band checked for patient name and birthdate: patient confirmed. Instructions provided to collect clean catch urine and patient verbalized understanding. Clean catch urine collected with return of yellow-colored clear urine; sample sent to lab for urinalysis. Specimen labeled in the presence of the patient. --15:12/19/20 Camila Roth RN 16:13 12/19/2020 Tylenol PO Response: no adverse reaction pain is improving. Symptoms have improved the patient feels better. --17:28 12/19/20 Camila Roth RN 16:19 12/19/2020 IV Fluids IV NS w/ bolus via IV site #1 Discontinued: bag #1 infused. Total amount infused: 1000 mL. IV patency established. IV site checked: no pain, redness, or swelling. IV flushed thoroughly. --17:29 12/19/20 Camila Roth RN 16:30 12/19/20. The patient reports no complaints and he is resting quietly. ( Fluids infusing, site clear). --17:29 12/19/20 Camila Roth RN 17:20 12/19/2020 Site #1 removed upon discharge. Catheter intact. Manual pressure and bandage applied. --17:24 12/19/20 Camila Roth RN.DISPOSITION / DISCHARGE 17:26 12/19/20. Condition at departure: improved and stable. No learning barriers present. Discharge instructions provided and reviewed with the patient. Patient verbalized understanding. Written instructions provided in [place]. The patient was discharged home and accompanied by political analyst. He left ambulatory and via private vehicle. Neuropsychology Division Chief driving. --17:27 12/19/20 Camila Roth RN 17:24 12/19/20. BP: 107/68. MAP: 81. HR: 91. RR: 16. O2 saturation: 100%. Temp: 101.1 F. Pain level now: 0/10. --17:27 12/19/20 Camila Roth RN.Locked/Released at 12/19/2020 17:30 by Camila Roth RN 4 Clinical Report - Nurses [facility] Emergency Department [address] [place] [address] Phone #: ext- [phone] 12/19/2020 13:42 Patient: YANELY BOWENS Sex: M : 1985 Age: 35y Name Value Range Interpretation Code Description Data Malena rce(s) Supporting Document(s) ID Date Data Source [id number] 12/19/2020 01:46:00 PM EDT [facility] 1 Clinical Report - Physicians/Mid Levels [facility] Emergency Department [address] [place] [address] Phone #: ext [phone] 12/19/2020 13:42 Patient: YANELY BOWENS Sex: M : 1985 Age: 35y Time Seen: 14:00 12/19/2020; initial patient contact, initial documentation. Arrived- By private vehicle. Historian- patient. Disposition decision: 16:43 12/19/2020.HISTORY OF PRESENT ILLNESS Chief Complaint: FEVER. This started 1 week [employer] and is still present (persistent). He has had measured fever (103). Fever was gradual in onset and has been intermittent. The patient has had muscle aches. No loss of appetite, fatigue, chest pain, dyspnea or cough. No decreased oral intake, diarrhea, altered mental status or skin breakdown noted or rash. No joint pain. No decreased urine output. Additional history - No known contact with a sick individual. Has not recently been ill. He is not immunocompromised. No recent absolute neutrophil count. No recent hospitalization. No new medication recently administered. No history of cancer. No indwelling line. No drug use. Patient was recently seen in the clinic and was told he has an infection in the ER and was prescribed bactrim DS which he has taken for 1 week. however, he has been spiking temperature of 103. denies any cough, admits to some loose stools, no ear pain , no sore throat. occasional cough. last took Naprosyn for fever last night. he denies any recent travels.REVIEW OF SYSTEMSNo anorexia, weight loss, palpitations, calf pain or sputum production. No nausea, constipation, blackstools, difficulty with urination or flank pain. No vomiting, sinus pain, tick bite, easy bruising or neck pain.No back pain. The patient has had a headache and a sore throat. All other systems reviewed and arenegative.PAST HISTORYSee nurses notes. Problems: no known problems. Additional Surgeries: no known surgeries. Medications: Vitamin D Oral IU, once a week. Zoloft Oral (Tablet 100 mg) 1 tablet, daily. Bactrim DS Oral (Tablet 800-160 mg) 1 tablet, 2x a day, last dose 12/19. Allergies: No Known Drug Allerg y.SOCIAL HISTORY 2 Clinical Report - Physicians/Mid Levels [facility] Emergency Department [address] [place] [address] Phone #: ext- [phone] 12/19/2020 13:42 Patient: YANELY BOWENS Sex: M : 1985 Age: 35y Light tobacco smoker (cigarette)- less than 1/2 a pack per day. Occasional alcohol use. No drug use.ADDITIONAL NOTESThe nursing notes have been reviewed.PHYSICAL EXAMVital Signs: 12/19/2020 14:04 BP: 122/77. MAP: 92. HR: 97. RR: 16. O2 saturation: 99%. Temp: 100.7 F.Pain level now: 10/28. Have been reviewed. Oxygen saturation normal.Appearance: Alert. No acute distress.ENT: Abnormal ear exam: right pinna swollen but not painful,. Nose normal.Neck: Normal inspection. Neck supple. No meningeal signs, JVD, lymphadenopathy or thyromegaly.CVS: Normal heart rate and rhythm. Heart sounds normal. Pulses normal.Respiratory: No respiratory distress. Painless inspiration. Breath sounds normal. Chest nontender.Abdomen: Soft and nontender. Bowel sounds normal. No organomegaly. No mass.Back: Normal inspection.Skin: Moderate, generalized, eryt hematous, macular, blanching skin rash.Extremities: Extremities exhibit normal ROM. Extremities nontender.Neuro: Oriented X 3. No motor deficit. No sensory deficit.LABS, X-RAYS, AND EKGChest X-ray: (Leslie garza Scott - 12/19/2020 2:34:20 PMPORTABLE CHEST SINGLE VIEW 2:37 PM HISTORY: Fever COMPARISON: [None. ] FINDINGS: [Mediastinal and hilar structures are normal. Cardiac silhouette is unremarkable.] Minimal linear atelectasis/scar at the left lung base. No pneumonia. No pulmonary edema. [No pleural effusions or pneumothorax.] IMPRESSION: Minimal left base atelectasis/scar otherwise unremarkable..). The X- rays were interpreted by the radiologist. Laboratory Tests: Lactic Acid: (OSORIO: 12/19/2020 14:05) ( [facility] 12/19/2020 14:26) Final results Test Result Flag Units (Reference) LACTIC ACID 1.3 MMOL/L (0.2 - 2.2) CBC w Diff: (OSORIO: 12/19/2020 14:05) ( MsgRcvd 12/19/2020 14:27) Final results Test Result Flag Units (Reference) CBC W/AUTOMATED DIFF 3 Clinical Report - Physicians/Mid Levels [facility] Emergency Department [address] [place] [address] Phone #: ext- [phone] 12/19/2020 13:42 Patient: YANELY BOWENS Sex: M : 1985 Age: 35y COMPLETE BLOOD COUNT WBC 3.7 L 10/uL (4.2 - 11.0) RBC 4.90 10/uL (4.50 - 6.30) HEMOGLOBIN 14.9 g/dL (14.0 - 16.0) HEMATOCRIT 45.4 % (41.0 - 51.0) MCV 92.7 fL (80.0 - 94.0) MCH 30.4 pg (27.0 - 34.0) MCHC 32.8 g/dL (31.0 - 36.0) RDW 13.3 % (11.5 - 14.8) PLATELETS 145 L 10/uL (150 - 450) MPV 11.8 H fL (7.4 - 10.4) NEUT 53.3 % (37.0 - 80.0) LYMPH 15.5 L % (25.0 - 40.0) MONO 8.8 H % (3.0 - 8.0) EOS 17.9 H % (0.0 - 7.0) BASO 0.5 % (0.0 - 2.0) %IG 4.0 H % (0.0 - 0.0) %NRBC 0.0 % (0.0 - 0.0) #NEUT 1.99 L 10/uL (2.00 - 6.90) #LYMPH 0.58 L 10/uL (0.60 - 3.40) #MONO 0.33 10/uL (0.00 - 0.90) #EOS 0.67 10/uL (0.00 - 0.70) #BASO 0.02 10/uL (0.00 - 0.20) #IG 0.15 H 10/uL (0.00 - 0.10) #NRBC 0.00 10/uL (0.00 - 0.00) MANUAL DIFF NOT INDICATED RBC MORPH NOT INDICATEDCMP: (OSORIO: 12/19/2020 14:05) ( MsgRcvd 12/19/2020 14:59) Final results Test Result Flag Units (Reference) COMPREHENSIVE METABOLIC PANEL COMPREHENSIVE METABOLIC PANEL SODIUM 136 mEq/L (134 - 153) POTASSIUM 4.5 mEq/L (3.6 - 5.0) CHLORIDE 101 mEq/L (98 - 107) CO2 25 MEQ/L (22 - 30) GLUCOSE 85 MG/DL (70 - 99) BUN 10 MG/DL (7 - 21) CREATININE 1.0 MG/DL (0.7 - 1.5) BUN/CREAT 10 (8 - 27) TOTAL PROTEIN 7.0 G/DL (6.3 - 8.2) ALBUMIN 4.0 G/DL (3.9 - 5.0) GLOBULIN 3.0 GM/DL (2.4 - 3.2) A/G RATIO 1.3 (0.8 - 2.0) CALCIUM 8.9 MG/DL (8.4 - 10.2) TOTAL BILI <0.7 MG/DL (0.2 - 1.3) ALKALINE PHOS 69 U/L (38 - 126) SGOT/AST 26 U/L (5 - 40) SGPT/ALT 18 U/L (7 - 56) ANION GAP 10.0 mmol/L (8.0 - 16.0) AGE 35 yrs NON-AA GFR >60 mL/min AFR AMER GFR >60 mL/min Male GFR Interprentation 20-49 yrs >60 mL/min Tabzst92-86 yrs >56 mL/min Normal 60-69 yrs >49 mL/min Normal 70-79yrs>42 mL/min Normal 80 and above >35 mL/min Normal Female GFRInterpretation 20-39 yrs >60 mL/min Normal 40-49 yrs >58 mL/minNormal 50- 59 yrs >51 mL/min Normal 60-69 yrs >45 mL/min Xlqkji73-20 yrs >39 mL/min Normal 80 and above >32 mL/min Normal 4 Clinical Report - Physicians/Mid Levels [facility] Emergency Department [address] [place] [address] Phone #: ext- [phone] 12/19/2020 13:42 [id number] Sex: M : 1985 Age: 35y Sed. Rate: (OSORIO: 12/19/2020 14:05) ( [facility] 12/19/2020 15:09) Final results Test Result Flag Units (Reference) SED RATE 4 mm/hr (0 - 15) SED RATE REENTER 4 Urinalysis: (OSORIO: 12/19/2020 15:20) ( [facility] 12/19/2020 15:31) Final results Test Result Flag Units (Reference) URINALYSIS URINALYSIS SOURCE R COLOR yellow (NORMAL: Yello CLARITY clear (NORMAL: Clear SPEC GRAVITY 1.020 (1.001 - 1.030 pH 6 (5 - 9) GLUCOSE NORM (NORMAL: Negat BILIRUBIN NEG (NORMAL: Negat KETONE NEG (NORMAL: Negat PROTEIN NEG (NORMAL: Negat NITRITE NEG (NORMAL: Negat BLOOD NEG (NORMAL: Negat LEUK EST NEG (NORMAL: Negat UROBILINOGEN NOR (less than 1.0 MICROSCOPIC Not Indicate Cholesterol: (OSORIO: 12/19/2020 13:59) ( [facility] 12/19/2020 14:00) Canceled.PROGRESS AND PROCEDURESCourse of Care: 16:10 12/19/20. CBC, urinalysis as well as CXR were Normal. we have no source ofinfe ction. will do COVID on the patient , patient advised to Quarantine until results come back. Patient and spouse counseled in person regarding the patient's stable condition, test results, diagnosis and need for follow-up. Patient and spouse agrees with plan of care. 16:13. Disposition: Discharged home in good and improved condition (16:43). Condition: good and stable. Discharge decision based on the following: patient's condition is improved; patient is ambulatory; patient drinking fluids; patient's exam is stable; no abnormal test results; stable condition on repeat evaluation; social support is adequate; transportation is available; follow-up is available; clinical impression is consistent with outpatient treatment.CLINICAL IMPRESSION Acute fever Coronavirus COVID-19 presumed (confirmatory testing pending). 5 Clinical Report - Physicians/Mid Levels [facility] Emergency Department [address] [place] [address] Phone #: ext- [phone] 12/19/2020 13:42 Patient: YANELY BOWENS Sex: M : 1985 Age: 35yINSTRUCTIONS Alternate Tylenol (Acetaminophen) and Motrin (Ibuprofen) for fever, temperature. Take according to label instructions. Do not work for ten days. (your CBC, CXR and urinalysis were normal. we have no source of your fever. we are testing you for COVID to make sure this is not the source of your fever. quarantine yourself x 10 days or until results of COVID comes back negative). Follow-up: Follow up with your healthcare provider in three days if not better. Reason for referral: evaluation. Summary of care provided to patient via paper.(Electronically signed by Shelley Appiah 12/19/2020 18:33) Name Value Range Interpretation Code Description Data Malena rce(s) Supporting Document(s) ID Date Data Source [id number] 12/19/2020 01:46:00 PM EDT [facility] Addenda for YANELY BOWENS VisitID: [id number] Date: 18:08left message for pt to call back(Electronically signed by Cathryn Hinds R.N. - 12/21/2020 18:08)12/21/2020 19:20pt informed of negative covid test pt verbalized understanding(Electronically signed by Cathryn Hinds R.N. - 12/21/2020 19:20) Name Value Range Interpretation Code Description Data Malena rce(s) Supporting Document(s) ID Date Data Source [id number] 12/20/2020 09:00:00 AM EDT [facility] [address] [place] [address] PHONE: [phone] FAX: [phone] Name .................. : KWAN [place] Acct Number.................. : [id number] [id number] Stay type ............. : E/R Discharge Date......... ... : 12/19/20 Admit Date .... ..... : 12/19/20 Admit Phys .................... : [facility] Date of ....... : 1985 Family Phys ................... : NO PCP Phone .................. : [phone] Age ................................ : 35 Film# .................. .:[id number] Sex ................................. : M Unsigned transcriptions are preliminary reports and do not represent a medical or legal document CHEST PORTABLE [id number] COMPLETE:12/19/20 14:20 [id number] Reason(s): fever PORTABLE CHEST SINGLE VIEW 2:37 PM HISTORY: Fever COMPARISON: None. FINDINGS: Mediastinal and hilar structures are normal. Cardiac silhouette is unremarkable. Minimal linear atelectasis/scar at the left lung base. No pneumonia. No pulmonary edema. No pleural effusions or pneumothorax. IMPRESSION: Minimal left base atelectasis/scar otherwise unremarkable. Electronically Reviewed and Signed By Gilmer Nelson MD , 12/20/20 09:00, ANTONIO Transcribe Initials: SSR, Transcribe Date: 12/20/20 08:41, Dictation Date: Copy for: EMERGENCY DEPT via modem Copy for: 710 MED REC DISCHARGED Page 1 of 1 Name Value Range Interpretation Code Description Data Malena rce(s) Supporting Document(s) ID Date Data Source [id number] 12/19/2020 05:00:00 PM EDT [facility] Name Value Range Interpretation Code Description Data Malena rce(s) Supporting Document(s) SARS coronavirus 2 RNA Not Detected [facility] This lab was ordered by [facility] and reported by [facility]. ID Date Data Source [id number] 12/21/2020 03:16:00 PM EDT [facility] Name Value Range Interpretation Code Description Data Malena rce(s) Supporting Document(s) SARS-CoV-2, STEFAN Not Detected Not Detected [facility] This nucleic acid amplification test was developed and its performancecharacteristics determined by [facility]. Nucleic acidamplification tests include RT-PCR and TMA. This test has not beenFDA cleared or approved. This test has been authorized by FDA underan Emergency Use Authorization (EUA). This test is only authorizedfor the duration of time the declaration that circumstances existjustifying the authorization of the emergency use of in vitrodiagnostic tests for detection of SARS-CoV-2 virus and/or diagnosisof COVID-19 infection under section 564(b)(1) of the Act, 21 U.S.C.360bbb-3(b) (1), unless the authorization is terminated or revokedsooner.When diagnostic testing is negative, the possibility of a falsenegative result should be considered in the context of a patient'srecent exposures and the presence of clinical signs and symptomsconsistent with COVID- 19. An individual without symptoms of COVID-19and who is not shedding SARS-CoV-2 virus would expect to have anegative (not detected) result in this assay. SARS-CoV-2, STEFAN 2 DAY TAT Performed [facility] ID Date Data Source [id number] 12/19/2020 03:31:00 PM EDT [facility] Name Value Range Interpretation Code Description Data Malena rce(s) Supporting Document(s) URINALYSIS [facility] UR[facility]ALYSIS SOURCE R [facility] COL[facility] yellow NORMAL: Yellow [facility] ospital CLARITY clear NORMAL: Clear [facility] Specific gravity of Urine by Test strip 1.020 1.001 - 1.030 [facility] pH 6 5 - 9 [facility] al Glucose [Mass/volume] in Urine by Test strip NORM NORMAL: Negat [facility] Bilirubin.total [Presence] in Urine by Test strip NEG NORMAL: Negative [facility] Ketones [Presence] in Urine by Test strip NEG NORMAL: Negative [facility] Protein [Mass/volume] in Urine by Test strip NEG NORMAL: Negat [facility] Nitrite [Presence] in Urine by Test strip NEG NORMAL: Negative [facility] BLOOD NEG NORMAL: Negative [facility] LEUK EST NEG NORMAL: Negative [facility] Urobilinogen [Mass/volume] in Urine by Test strip NOR less casper n 1.0 mg/dL [facility] MICROSCOPIC Not Indicate [facility] ospital ID Date Data Source [id number] 12/25/2020 06:52:00 AM EDT [facility] [id number] Name Value Range Interpretation Code Description Data Malena rce(s) Supporting Document(s) Bacteria identified in Blood by Culture [facility] NO GROWTH AFTER 5 DAYS ID Date Data Source [id number] 12/26/2020 12:35:00 PM EDT [facility] Name Value Range Interpretation Code Description Data Malena rce(s) Supporting Document(s) CULTURE BLOOD [facility] spital _CULTURE BLOOD_ TEST PERFORM ED AT [address] [address] CLIA# [id number] SEE SCANNED REPORT{ PRELIM ID Date Data Source [id number] 12/26/2020 12:35:00 PM EDT [facility] Name Value Range Interpretation Code Description Data Malena rce(s) Supporting Document(s) CULTURE BLOOD [facility] spital _CULTURE BLOOD_ TEST PERFORM ED AT [address] [address] CLIA# [id number] SEE SCANNED REPORT{ PRELIM ID Date Data Source [id number] 12/19/2020 03:09:00 PM EDT [facility] Name Value Range Interpretation Code Description Data Malena rce(s) Supporting Document(s) Erythrocyte sedimentation rate by Westergren method 4 mm/hr 0 - 15 [facility] SED RATE REENTER 4 [facility] ID Date Data Source [id number] 12/19/2020 02:59:00 PM EDT [facility] Name Value Range Interpretation Code Description Data Malena rce(s) Supporting Document(s) COMPREHENSIVE METABOLIC PANEL [facility] COMPREHENSIVE METABOLIC PANEL Sodium [Moles/volume] in Serum or Plasma 136 mEq/L 134 - 153 [facility] Potassium [Moles/volume] in Serum or Plasma 4.5 mEq/L 3.6 - 5.0 [facility] Chloride [Moles/volume] in Serum or Plasma 101 mEq/L 98 - 107 [facility] Carbon dioxide, total [Moles/volume] in Serum or Plasma 25 MEQ/L 22 - 30 [facility] Glucose [Mass/volume] in Serum or Plasma 85 MG/DL 70 - 99 [facility] BUN 10 MG/DL 7 - [facility] Creatinine [Mass/volume] in Serum or Plasma 1.0 MG/DL 0.7 - 1.5 [facility] BUN/CREAT 10 8 - 27 [facility] Protein [Mass/volume] in Serum or Plasma 7.0 G/DL 6.3 - 8.2 [facility] Albumin [Mass/volume] in Serum or Plasma 4.0 G/DL 3.9 - 5.0 [facility] Globulin [Mass/volume] in Serum by calculation 3.0 GM/DL 2.4 - 3.2 [facility] A/G RATIO 1.3 0.8 - 2.0 [facility] Calcium [Mass/volume] in Serum or Plasma 8.9 MG/DL 8.4 - 10.2 [facility] Bilirubin.total [Mass/volume] in Serum or Plasma <0.7 MG/DL 0.2 - 1.3 [facility] Alkaline phosphatase [Enzymatic activity/volume] in Serum or Plasma 69 U/L 38 - 126 [facility] Aspartate aminotransferase [Enzymatic activity/volume] in Serum or Plasma 26 U/L 5 - 40 [facility] Alanine aminotransferase [Enzymatic activity/volume] in Seru m or Plasma 18 U/L 7 - 56 [facility] Anion gap 3 in Serum or Plasma 10.0 mmol/L 8.0 - 16.0 [facility] AGE 35 yrs [facility] al NON-AA GFR >60 mL/min [facility] ital AFR AMER GFR >60 mL/min [facility] Male GFR In terprentation 20-49 yrs >60 mL/min Normal 50-59 yrs >56 mL/min Normal 60-69 yrs >49 mL/min Normal 70-79yrs >42 mL/min Normal 80 and above >35 mL/min Normal Female GFR Interpretation 20-39 yrs >60 mL/min Normal 40-49 yrs >58 mL/min Normal 50-59 yrs >51 mL/min Normal 60-69 yrs >45 mL/min Normal 70-79 yrs >39 mL/min Normal 80 and above >32 mL/min Normal ID Date Data Source [id number] 12/19/2020 02:27:00 PM EDT [facility] Name Value Range Interpretation Code Description Data Malena rce(s) Supporting Document(s) CBC W/AUTOMATED DIFF [facility] COMPLETE BLOOD COUNT Leukocytes [#/volume] in Blood by Automated count 3.7 10^3/uL 4.2 - 1 1.0 L [facility] Erythrocytes [#/volume] in Blood by Automated count 4.90 10^6/uL 4. 50 - 6.30 [facility] Hemoglobin [Mass/volume] in Blood 14.9 g/dL 14.0 - 16.0 [facility] Hematocrit [Volume Fraction] of Blood by Automated count 45.4 % 4 1.0 - 51.0 [facility] Erythrocyte mean corpuscular volume [Entitic volume] by Auto mated count 92.7 fL 80.0 - 94.0 [facility] Erythrocyte mean corpuscular hemoglobin [Entitic mass] by Automated count 30.4 pg 27.0 - 34.0 [facility] Erythrocyte mean corpuscular hemoglobin concentration [Mass/volume] by Automated count 32.8 g/dL 31.0 - 36.0 [facility] Erythrocyte distribution width [Ratio] by Automated count 13.3 % 11.5 - 14.8 [facility] Platelets [#/volume] in Blood by Automated count 145 10^3/uL 150 - 45 0 L [facility] Platelet mean volume [Entitic volume] in Blood by Automated count 11.8 fL 7.4 - 10.4 H [facility] Neutrophils/100 leukocytes in Blood by Automated count 53.3 % 37. 0 - 80.0 [facility] Lymphocytes/100 leukocytes in Blood by Manual count 15.5 % 25.0 - 40.0 L [facility] Monocytes/100 leukocytes in Blood by Automated count 8.8 % 3.0 - 8.0 H [facility] Eosinophils/100 leukocytes in Blood by Automated count 17.9 % 0.0 - 7.0 H [facility] Basophils/100 leukocytes in Blood by Automated count 0.5 % 0.0 - 2.0 [facility] %IG 4.0 % 0.0 - 0.[address] [facility] %NRBC 0.0 % 0.0 - 0.0 [facility] al Neutrophils [#/volume] in Blood by Automated count 1.99 10^3/uL 2.00 - 6.90 L [facility] Lymphocytes [#/volume] in Blood by Automated count 0.58 10^3/uL 0.60 - 3.40 L [facility] Monocytes [#/volume] in Blood by Automated count 0.33 10^3/uL 0.00 - 0.90 [facility] Eosinophils [#/volume] in Blood by Automated count 0.67 10^3/uL 0.00 - 0.70 [facility] Basophils [#/volume] in Blood by Automated count 0.02 10^3/uL 0.00 - 0.20 [facility] #IG 0.15 10^3/uL 0.00 - 0.10 H [facility]sp[facility] #NRBC 0.00 10^3/uL 0.00 - 0.00 [facility] MANUAL DIFF NOT INDICATED [facility] RBC MORPH NOT INDICATED [facility] spital ID Date Data Source [id number] 12/19/2020 02:26:00 PM EDT [facility] Name Value Range Interpretation Code Description Data Malena rce(s) Supporting Document(s) Lactate [Moles/volume] in Serum or Plasma 1.3 MMOL/L 0.2 - 2.2 [facility] ID Date Data Source [id number] 03/12/2020 12:00:00 AM EDT [facility] Abe Chavarria Pa-C Patient Name: KWAN MCCULLOUGH,[id number] [facility] Date of : 1985 Date of Exam: 03/12/2020CARO Bruner [id number]#: Fax: [phone] EXAM: MRI SHOULDER RIGHT W/O&W/CONTRAST ARTHROGRAMCLINICAL INFORMATION: Atraumatic pain and decreased [id number].There are no prior right shoulder MRI examinations for comparison.Pre and post contrast 3T MRI of the right shoulder with shoulder MRIarthrography was performed utilizing various sequences. The glenohumeralinjection was performed by ERIC Keen.The pre-injection portion of the examination shows mild hypertrophicdegenerative change involving the acromioclavicular joint. The acromionprocess is Type II. There is mild patchy and linear T2 hypersignal seen inthe supraspinatus tendon with a small amount of fluid seen superficial tosaid tendon. Normal appearing low signal is seen throughout thesubscapularis, infraspinatus, and teres minor tendons. Mild coracohumeraland coracoacromial ligamentous thickening is noted. The biceps tendonresides within the bicipital groove.The post injection portion of the examination shows normal appearing labralsignal and morphology. None of the injected fluid has migrated superior tothe supraspinatus tendon. The glenohumeral ligaments are intact.IMPRESSION:1. There is mild supraspinatus tendinitis/tendinosis.2. Other findings as described above.Accredited by the [employer] in MR.ALE Archibald/Nicolasa you for referring YANELY BOWENS II to our office. Electronically Signed - ZAY TAN DO 03/15/20 15:36 Name Value Range Interpretation Code Description Data Malena rce(s) Supporting Document(s) ID Date Data Source [id number] 03/12/2020 12:00:00 AM EDT [facility] Abe Chavarria Pa-C Patient Name: NATHALIE BOWENS II [facility] Date of : 1985 [facility]: [facility] [id number] Fax: [phone] EXAM: INJECTION PROCEDURE FOR SHOULDER ARTHROGRAMRIGHT SHOULDER ARTHROGRAM:The procedure was performed by Jeevan Arellano [facility], under the generalsupervision of Dr. Lino.The benefits and risks including but not limited to pain, infection,bleeding and anaphylaxis were explained to the patient and informed consentwas obtained. The right glenohumeral joint space was localized usingfluoroscopic guidance. The skin was prepped and draped in a sterilefashion. 1% Lidocaine was used as a local anesthetic. Using fluoroscopicguidance, a #25 gauge needle was inserted and advanced into theglenohumeral joint space. 0.5 cc of Omnipaque 300 was injected to verifyplacement. 11 cc of a solution containing 20 cc of sterile saline and 0.15cc of ProHance was injected into the joint space. The needle was removedand the patient was taken to MRI for post procedural imaging.The patient tolerated the procedure well and there were no immediatecomplications.Fluoroscopic images are performed with last image hold technology. Theseimages require no additional radiation to acquire.Fluoroscopy time was 1 second at 3 pulses/second. This is equal to .25seconds continuous fluoroscopy time which is a 75% reduction in radiation.Dictated by Jeevan Arellano [facility], with Dr. Lino.JYOTI BlountSG/Nicolasa you for referring YANELY BOWENS II to our office. Electronically Signed - RONI LINO MD 03/16/20 18:03 Name Value Range Interpretation Code Description Data Malena rce(s) Supporting Document(s) ID Date Data Source [id number] 03/12/2020 12:00:00 AM EDT [facility] Patient Name: KWAN MCCULLOUGH,NATHALIE [facility] Date of : 1985 Date of Exam: 03/12/2020CARO Bruner [id number] Fax: [phone] EXAM: INJECTION PROCEDURE FOR SHOULDER ARTHROGRAMRIGHT SHOULDER ARTHROGRAM:The procedure was performed by ERIC Keen, under the generalsupervision of Dr. Lino.The benefits and risks including but not limited to pain, infection,bleeding and anaphylaxis were explained to the patient and informed consentwas obtained. The right glenohumeral joint space was localized usingfluoroscopic guidance. The skin was prepped and draped in a sterilefashion. 1% Lidocaine was used as a local anesthetic. Using fluoroscopicguidance, a #25 gauge needle was inserted and advanced into theglenohumeral joint space. 0.5 cc of Omnipaque 300 was injected to verifyplacement. 11 cc of a solution containing 20 cc of sterile saline and 0.15cc of ProHance was injected into the joint space. The needle was removedand the patient was taken to MRI for post procedural imaging.The patient tolerated the procedure well and there were no immediatecomplications.Fluoroscopic images are performed with last image hold technology. Theseimages require no additional radiation to acquire.Fluoroscopy time was 1 second at 3 pulses/second. This is equal to .25seconds continuous fluoroscopy time which is a 75% reduction in radiation.Dictated by ERIC Keen, with Dr. Lino.Roni Lino, DIMAS/jmcTara you for referring YANELY BOWENS II to our office. Electronically Signed - RONI LINO MD 03/16/20 18:03 Name Value Range Interpretation Code Description Data Malena rce(s) Supporting Document(s) Procedure Social History Code Duration Value Status Description Data Source(s ) Smoking 01/19/2021 12:00:00 AM EDT Current Smoker completed Curre nt Smoker eCW1 (Formerly [facility]) Smoking 01/19/2021 12:00:00 AM EDT Current Smoker completed Curre nt Smoker eCW1 (Formerly [facility]) Smoking 12/17/2020 12:00:00 AM EDT Current Smoker completed Curre nt Smoker eCW1 (Formerly [facility]) Smoking 03/15/2020 12:00:00 AM EDT Current Smoker completed Curre nt Smoker eCW1 (Formerly [facility]) Smoking 03/15/2020 12:00:00 AM EDT Current Smoker completed Curre nt Smoker eCW1 (Formerly [facility]) Smoking 03/15/2020 12:00:00 AM EDT Current Smoker completed Curre nt Smoker eCW1 (Formerly [facility]) Smoking 02/27/2020 12:00:00 AM EDT Current Smoker completed Curre nt Smoker eCW1 (Formerly [facility]) Vital Signs ID Date Data Source UNK Name Value Range Interpretation Code Description Data Source(s) Body weight 177 [lb_av] 177 [lb_av] eCW1 ([facility]) Body height 68 [in_i] 68 [in_i] eCW1 ([facility]) Body mass index (BMI) [Ratio] 26.91 kg/m2 26.91 kg/m2 eCW1 ([facility]) Heart rate 80 /min 80 /min eCW1 ([facility]) Respiratory rate 18 /min 18 /min eCW1 ([facility]) Body temperature 97.6 [degF] 97.6 [degF] eCW1 ( [facility]) Systolic blood pressure 120 mm[Hg] 120 mm[Hg] e CW1 ([facility]) Diastolic blood pressure 80 mm[Hg] 80 mm[Hg] eCW1 ([facility]) Body weight 176 [lb_av] 176 [lb_av] eCW1 ([facility]) Body height 68 [in_i] 68 [in_i] eCW1 ([facility]) Body mass index (BMI) [Ratio] 26.76 kg/m2 26.76 kg/m2 eCW1 ([facility]) Heart rate 80 /min 80 /min eCW1 ([facility]) Respiratory rate 18 /min 18 /min eCW1 ([facility]) Body temperature 98.1 [degF] 98.1 [degF] eCW1 ( [facility]) Systolic blood pressure 130 mm[Hg] 130 mm[Hg] e CW1 ([facility]) Diastolic blood pressure 82 mm[Hg] 82 mm[Hg] eCW1 ([facility]) Body weight 166.0 [lb_av] 166.0 [lb_av] eCW1 ([facility]) Body height 68 [in_i] 68 [in_i] eCW1 ([facility]) Body mass index (BMI) [Ratio] 25.24 kg/m2 25.24 kg/m2 eCW1 ([facility]) Heart rate 114 /min 114 /min eCW1 ([facility]) Respiratory rate 18 /min 18 /min eCW1 ([facility]) Body temperature 97.9 [degF] 97.9 [degF] eCW1 ( [facility]) Systolic blood pressure 130 mm[Hg] 130 mm[Hg] e CW1 ([facility]) Diastolic blood pressure 80 mm[Hg] 80 mm[Hg] eCW1 ([facility]) Patient Treatment Plan of Care Planned Activity Planned Date Details Description Data Source (s) Sertraline 50 MG Oral Tablet 03/12/2020 12:00:00 AM EDT eCW1 ([facility]ly [facility]) Sertraline 50 MG Oral Tablet 03/12/2020 12:00:00 AM EDT eCW1 ([facility]ly [facility])
[2021-03-15] MEDS ORDERED: ZOLO100T (18:02)
--- OUTSIDE RECORDS SUMMARY | 2021-03-15 18:43 | CCD ---
Author Author [facility] Organization [facility] Address Unknown Phone Unavailable Care Team Providers Care V Belt Skiver Name Role Phone NO, PCP Unavailable Unavailable Hospital Lab, Area [place] Unavailable Unavailable Yossi BARRETT MD Unavailable Unavailable [...] Unavailable Unavailable Yossi BARRETT MD Unavailable Unavailable Yosis BARRETT MD Unavailable Unavailable Yossi BARRETT MD [...] is protected by Article 27-F of the [facility] Public Health law. If you continue you may have access to information: Regarding HIV / AIDS; Provided by facilities licensed or operated by the [facility] Office of Mental Health; or Provided by the [facility] Office for People With Developmental Disabilities. If such information is present, then the following [facility] mandated warning applies: This information has [...] law may result in a fine or group home sentence or both. A general authorization for the release of medical or other information is NOT sufficient authorization for further disc losure. Encounters Encounter Providers Location Date Indications Data Source(s ) [place] [address] [facility] [facility] [address] 01/24/2021 12:00:00 AM EDT eCW1 ([facility]) [place] [address] [facility] [address] 01/19/2021 12:00:00 AM EDT eCW1 ([facility]) Outpatient Attender: [facility] 12/19/2020 02:0 5:00 PM EDT [facility] Emergency Attender: SHELLEY Perla MDConsultant: PCP NOConsultant: SPECIFIED NOT 12/19/2020 01:46:00 PM EDT - 12/19/2020 05:26:00 PM EDT [facility] Patient discharged. Outpatient Attender: YANELY MCMANUS [facility] 12/17 05:03:01 PM EDT - 12/17/2020 05:54:08 PM EDT [facility] ([facility] ) [place] [address] [facility] [address] 12/17/2020 12:00:00 AM EDT eCW1 ([facility]) Outpatient 12/13/2020 06:25:38 PM EDT [facility] ([facility]) Outpatient Attender: YANELY MCMANUS [facility] 12/11 10:57:58 AM EDT - 12/11/2020 01:15:27 PM EDT [facility] ([facility] ) Outpatient Attender: Apolinar OBANDO-Tushar: COLTON BARRETT MD 12/10/2020 04:27:05 PM EDT [facility] ([facility]) [place] [address] [facility] [address] [facility] [address] 10/13/2020 12:00:00 AM EDT eCW1 ([facility]) Unknown [address] [facility] [address] 09/17/2020 12:00:00 AM EDT eCW1 ([facility]) Outpatient Attender: Abe OBANDO Physical Therapy 12:15:00 PM EST [facility] ([facility]) TeleMedicine Phone E/M by Phys 11-20 Min [address] [place] [address] 03/12/2020 12:00:00 AM EDT eCW1 ([facility]) Outpatient Attender: Abe OBANDO Physical Therapy 01:15:00 PM EDT [facility] ([facility]) [place]patient [address] [facility] [address] [facility] [address] 02/27/2020 12:00:00 AM EDT eCW1 ([facility]) Immunizations Vaccine Date Status Description Data Source(s) COVID-19 dose #1 given elsewhere Unspecified 12/17/2020 03:1 2:00 PM EDT completed eCW1 ([facility]) COVID-19 dose #2 given elsewhere Unspecified 12/17/2020 03:1 2:00 PM EDT completed eCW1 ([facility]) COVID-19 dose #1 given elsewhere Unspecified 12/17/2020 03:1 2:00 PM EDT completed eCW1 ([facility]) COVID-19 dose #2 given elsewhere Unspecified 12/17/2020 03:1 2:00 PM EDT completed eCW1 ([facility]) COVID-19 dose #1 given elsewhere Unspecified 12/17/2020 03:1 2:00 PM EDT completed eCW1 ([facility]) COVID-19 dose #2 given elsewhere Unspecified 12/17/2020 03:1 2:00 PM EDT completed eCW1 ([facility]) COVID-19 VACCINE Pfizer 10/19/2020 12:00:00 AM EDT completed [facility] Vaccine Series Complete: YESThis Data wa s Submitted to [facility] Via [facility]. COVID-19 VACCINE Pfizer 09/28/2020 12:00:00 AM EDT completed [facility] Vaccine Series Complete: NOThis Data was Submitted to [facility] Via [facility]. Medications Medication Brand Name Start Date Product [...] {tablet} active Sertraline HCl 50 MG eCW1 ([facility]) Sertraline 50 MG Oral Tablet Sertraline HCl 50 MG Sertraline HCl 50 MG 03/12/2020 12:00:00 AM EDT 1.0 {tablet} active Sertraline HCl 50 MG eCW1 ([facility]) 500 mg 02/28/2020 12:00:00 AM EDT tablet 60 TAKE ONE TABLET BY MOUTH TWICE A DAY TAKE ONE TABLET BY MOUTH TWICE A DAY SOLD: 02/28/2020 [facility] Naproxen 500 MG Oral Tablet Naproxen 02/27/2020 12:00:00 AM EDT active [facility] ([facility]) 25 mg 02/27/2020 12:00:00 [...] type / Coverage type Policy ID Covered democrat ID Covered democrat's relationship to hart Policy Hart Plan Information Medicaid S [id number] S [id number] [facility] P [id number] S [id number] [employer] (FIRST ADVANTAGE) emp [id number] Employee [id number] [employer] 136 emp [id number] Employee [id number] [employer] [place] emp [id number] Employee [id number] [facility] 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 [id number] Self [id number] [facility] XIX -O [id number] 18 [id number] [facility] [id number] SP [id number] [facility] COMM[facility] [id number] SP [id number] SELF PAY UNAVAILABLE SP [facility] [id number] SP [id number] [facility] [id number] SP [id number] [facility] W[facility] [id number] SP [id number] [facility] O [id number] S [id number] O UNAVAILABLE [facility] C[facility] HEA [id number] S [id number] UN AMERICHOICE XIX -[facility] [id number] Problems, Conditions, and Diagnoses Code Display Name Description Problem Type Effective Dates Data Source(s) E39384 CONTACT WITH AND SUSPECTED EXPOSURE TO C OVID-19 CONTACT WITH AND SUSPECTED EXPOSURE TO COVID-19 Diagnosis 12/19/2020 01:46:[address] [facility] C76834 Nicotine dependence, cigarettes, uncompl icated Nicotine dependence, cigarettes, uncomplicated Diagnosis 12/19/2020 01:46:00 PM EDT [facility] R509 Fever, unspecified Fever, unspecified Diagnosis 01:46:00 PM EDT [facility] Z87.442 [id number] History of kidney stones Problem 12/17/2020 12:00:00 AM EDT eCW1 ([facility]) Surgeries/Procedures No Information Results ID Date Data Source [id number] 12/19/2020 01:46:00 PM EDT [facility] 1 OrderSheet [facility] Emergency Department [address] [place] [address] Phone #: ext- [phone] 12/19/2020 13:42 Patient: [...] ; Shelley AppiahBlood Culture STAT 14:00 14:26 [id number] X2 (Sched Shelley Appiah RN14:00 12/19/2020) ;Blood Culture STAT 14:00 12/19/2020 14:26 [id number] X2 (Sched Shelley Appiah RN14:10 12/19/2020) ;Lactic Acid STAT 14:00 12/19/2020 14:26 Shelley Neville RN ;COVID-19 CAH STAT 16:12 12/19/2020 Initialed: 16:16 Shelley Appiah(Symptomatic as Shelley Appiah Cancelled: Wrong Order 16:16Defined by [facility][NOTE 2]) ; Shelley Appiah(12/12/20) (Not FirstTest) (NotHospitalized) (Not) (NotResident in 2 OrderSheet [facility] Emergency Department [address] [place] [address] Phone #: ext- [phone] 12/19/2020 13:42 Patient: YANELY BOWENS Sex: M [...] Camila Roth RN (17:30 12/19/2020)] 3 OrderSheet [facility] Emergency Department [address] [place] [address] Phone #: ext- [phone] 12/19/2020 13:42 Patient: YANELY BOWENS Sex: M : 1985 Age: 35y Name Value Range Interpretation Code Description Data Malena rce(s) Supporting Document(s) ID Date Data Source [id number] 12/19/2020 01:46:00 PM EDT [facility] 1 Medication Reconciliation Report [facility] Emergency Department [address] [place] [address] Phone #: ext [phone] 12/19/2020 13:42 Patient: YANELY BOWENS Sex: M [...] Name Value Range Interpretation Code Description Data Amlena rce(s) Supporting Document(s) ID Date Data Source [id number] 12/19/2020 01:46:00 PM EDT [facility] 1 Medication Administration Record [facility] Emergency Department [address] [place] [address] Phone #: [phone] ext [phone] 12/19/2020 13:42 Patient: YANELY BOWENS Sex: M [...] rce(s) Supporting Document(s) ID Date Data Source [id number] 12/19/2020 01:46:00 PM EDT [facility] 1 General Instructions [facility] Emergency Department [address] [place] [address] Phone #: ext- [phone] 12/19/2020 13:42 Patient: YANELY BOWENS Sex: M [...] yourself get too tired. 2 General Instructions [facility] Emergency Department [address] [place] [address] Phone #: ext- [phone] 12/19/2020 13:42 Patient: [...] or a fever with an unknown cause. Rqpy-kcq-poilmwo medicines will not shorten the length of [...] healthcare provider as directed for the results.Call [phone] [phone] any of these occur: Trouble breathing or swallowing, or wheezing Chest pain Confusion Extreme dr owsiness or trouble waking up 3 General Instructions [facility] Emergency Department [address] [place] [address] Phone #: ext- [phone] 12/19/2020 13:42 Patient: YANELY BOWENS Sex: M [...] provider Shaking chills Feeling weak or dizzy [employer]. [address] [place] [address]. All rights reserved. This information is not [...] of yourself at home: 4 General Instructions [facility] Emergency Department [address] [place] [address] Phone #: ext- [phone] 12/19/2020 13:42 Patient: [...] 24 to 48 hours 5 General Instructions [facility] Emergency Department [address] [place] [address] Phone #: ext- [phone] 12/19/2020 13:42 Patient: [...] place where infectious diseases arecommon. Many people orange picking supervisor a cold or other virus while traveling. This usually goes away without aproblem. But, some places have more serious diseases. Fever with certain other symptoms maymean you have a serious illness. Symptoms to watch for include diarrhea, skin rashes, insect bites,and skin boils, or infections. Your provider may ask you: 6 General Instructions [facility] Emergency Department [address] [place] [address] Phone #: ext- [phone] 12/19/2020 13:42 --- Patient: YANELY BOWENS Sex: M : 1985 Age: 35y What you did on your trip How long you were there Where you travelled and where you stayed (hotel, [facility] house, tent) What you ate and drank If you were bitten by insects or other bugs If you swam in freshwater If you had sex or got a tattoo or piercing while you were thereCheck the CDC to get more information about specific infectious diseases in the areas you havetraveled. 2709-2257 [employer]. [address] [place] [address]. All rights reserved. This information is not [...] 19 was first found in people in [facility], in late 2019. In 2020,several cases of [...] Symptoms can include: Fever 7 General Instructions [facility] Emergency Department [address] [address] Phone #: ext- [phone] 12/19/2020 13:42 Patient: YANELY BOWENS Sex: M [...] with a COVID-19 outbreak 8 General Instructions [facility] Emergency Department [address] [place] [address] Phone #: ext- [phone] 12/19/2020 13:42 Patient: YANELY BOWENS Sex: M [...] hands often, or use an alcohol-based hand door cutter.The CDC advises that you shouldn't wear a face mask if you are not sick.To protect yourself from COVID-19: Wash your hands often with soap and clean, running w ater for at least 20 seconds. If you don't have access to soap and water, use an alcohol-based hand door cutter often. Make sure it has at least 60% alcohol. 9 General Instructions [facility] Emergency Department [address] [place] [address] Phone #: ext- [phone] 12/19/2020 13:42 Patient: [...] such as masks, gowns, 10 General Instructions [facility] Emergency Department [address] [place] [address] Phone #: ext- [phone] 12/19/2020 13:42 Patient: [...] instructions from your healthcare provider. Call your [facility] provider's office before going. They [...] from the sick person. 11 General Instructions [facility] Emergency Department [address] [place] [address] Phone #: ext- [phone] 12/19/2020 13:42 Patient: YANELY BOWENS Sex: M : 1985 Age: 35yWhen to call your healthcare providerCall your healthcare provider: If you've recently traveled and have symptoms If you have been diagnosed with COVID-19 and your symptoms are worse [phone] [employer]. [address] [place] [address]. All rights reserved. This information is not [...] rce(s) Supporting Document(s) ID Date Data Source [id number] 12/19/2020 01:46:00 PM EDT [facility] 1 Clinical Report - Nurses [facility] Emergency Department [address] [place] [address] Phone #: ext- [phone] 12/19/2020 13:42 Patient: YANELY BOWENS Sex: M [...] a skin rash. Location- abdomen and back.Treatment ASSEMBLY HAND:(seen [facility] given Rx Bactrim on 7th day [...] 100 mg) 1 tablet, daily. --14:10 12/19/20 Camila Roth RN Vitamin D Oral IU, once a week. --14:11 12/19/20 Camila Roth RN.AllergiesNo Known Drug Allergy. --14:11 12/19/20 Camila Roth RN.PROBLEMS:no known problems.ADDITIONAL SURGERIES:no known surgeries.Pjvejyk64:04 12/19/20. 2 Clinical Report - Nurses [facility] Emergency Department [address] [place] [address] Phone #: ext- [phone] 12/19/2020 13:42 Patient: [...] room 1B. --14:21 12/19/20 Camila Roth RN.PHYSICAL [id number]:12/19/20.GENERAL / NEURO / PSYCH: Alert. Appears in [...] 5 rights. 3 Clinical Report - Nurses [facility] Emergency Department [address] [place] [address] Phone #: ext- [phone] 12/19/2020 13:42 Patient: [...] Patient verbalized understanding. Written instructions provided in Croatian. The patient was discharged home and accompanied by armhole baster jumpbasting. He left ambulatory and via private vehicle. Telegraph Operator driving. --17:27 12/19/20 Camila Roth RN 17:24 12/19/20. BP: 107/68. MAP: 81. HR: 91. RR: 16. O2 saturation: 100%. Temp: 101.1 F. Pain level now: 0/10. --17:27 12/19/20 Camila Roth RN.Locked/Released at 12/19/2020 17:30 by Camila Roth RN 4 Clinical Report - Nurses [facility] Emergency Department [address] [place] [address] Phone #: ext- [phone] 12/19/2020 13:42 Patient: YANELY BOWENS Sex: M : 1985 Age: 35y Name Value Range Interpretation Code Description Data Malena rce(s) Supporting Document(s) ID Date Data Source [id number] 12/19/2020 01:46:00 PM EDT [facility] 1 Clinical Report - Physicians/Mid Levels [facility] Emergency Department [address] [place] [address] Phone #: ext [phone] 12/19/2020 13:42 Patient: YANELY BOWENS Sex: M : 1985 Age: 35y Time Seen: 14:00 12/19/2020; initial patient contact, initial documentation. Arrived- By private vehicle. Historian- patient. Disposition decision: 16:43 12/19/2020.HISTORY OF PRESENT ILLNESS Chief Complaint: FEVER. This started 1 week ASSEMBLY HAND and is still present (persistent). He has [...] HISTORY 2 Clinical Report - Physicians/Mid Levels [facility] Emergency Department [address] [place] [address] Phone #: ext- [phone] 12/19/2020 13:42 Patient: YANELY BOWENS Sex: M [...] DIFF 3 Clinical Report - Physicians/Mid Levels [facility] Emergency Department [address] [place] [address] Phone #: ext- [phone] 12/19/2020 13:42 Patient: [...] Male GFR Interprentation 20-49 yrs >60 mL/min Tehacp85-32 yrs >56 mL/min Normal 60-69 yrs >49 mL/min Normal 70-79yrs>42 mL/min Normal 80 and above >35 mL/min Normal Female GFRInterpretation 20-39 yrs >60 mL/min Normal 40-49 yrs >58 mL/minNormal 50- 59 yrs >51 mL/min Normal 60-69 yrs >45 mL/min Xnrgcj77-43 yrs >39 mL/min Normal 80 and above >32 mL/min Normal 4 Clinical Report - Physicians/Mid Levels [facility] Emergency Department [address] [place] [address] Phone #: ext- [phone] 12/19/2020 13:42 [facility]: [id number] Sex: M : 1985 Age: 35y Sed. Rate: (OSORIO: 12/19/2020 14:05) ( [facility] 12/19/2020 15:09) Final results Test Result Flag Units (Reference) SED RATE 4 mm/hr (0 - 15) SED RATE REENTER 4 Urinalysis: (OSORIO: 12/19/2020 15:20) ( [facility] 12/19/2020 15:31) Final results Test Result Flag [...] Not Indicate Cholesterol: (OSORIO: 12/19/2020 13:59) ( [facility] 12/19/2020 14:00) Canceled.PROGRESS AND PROCEDURESCourse of Care: [...] pending). 5 Clinical Report - Physicians/Mid Levels [facility] Emergency Department [address] [place] [address] Phone #: ext- [phone] 12/19/2020 13:42 Patient: [...] rce(s) Supporting Document(s) ID Date Data Source [id number] 12/19/2020 01:46:00 PM EDT [facility] Addenda for YANELY BOWENS VisitID: [id number] Date: 18:08left message for pt to call back(Electronically signed by Cathryn Hinds R.N. - 12/21/2020 18:08)12/21/2020 19:20pt informed of negative covid test pt verbalized understanding(Electronically signed by Cathryn Hinds R.N. - 12/21/2020 19:20) Name Value Range Interpretation Code Description Data Malena rce(s) Supporting Document(s) ID Date Data Source [id number] 12/20/2020 09:00:00 AM EDT [facility] [address] [place] [address] PHONE: [phone] FAX: [phone] Name .................. : [place] Acct Number.................. : [id number] ROOM. ................. : [facility] Number ................... : [id number] Stay type ............. : E/R Discharge Date......... ... : 12/19/20 Admit Date .... ..... : 12/19/20 Admit Phys .................... : [facility] Date of ....... : 1985 Family Phys ................... : NO PCP Phone .................. : [phone] Age ................................ : 35 Film# .................. .:[id number] Sex ................................. : M Unsigned transcriptions are preliminary reports and do not represent a medical or legal document CHEST PORTABLE [id number] COMPLETE:12/19/20 14:20 [id number] Reason(s): fever PORTABLE CHEST SINGLE VIEW 2:37 [...] rce(s) Supporting Document(s) ID Date Data Source [id number] 12/19/2020 05:00:00 PM EDT [facility] Name Value Range Interpretation Code Description Data Malena rce(s) Supporting Document(s) SARS coronavirus 2 RNA Not Detected [facility] This lab was ordered by [facility] and reported by [facility]. ID Date Data Source [id number] 12/21/2020 03:16:00 PM EDT [facility] Name Value Range Interpretation Code Description Data Malena rce(s) Supporting Document(s) SARS-CoV-2, STEFAN Not Detected Not Detected [facility] This nucleic acid amplification test was developed and its performancecharacteristics determined by [facility]. Nucleic acidamplification tests include RT-PCR and [...] assay. SARS-CoV-2, STEFAN 2 DAY TAT Performed [facility] ID Date Data Source [id number] 12/19/2020 03:31:00 PM EDT [facility] Name Value Range Interpretation Code Description Data Malena rce(s) Supporting Document(s) URINALYSIS [facility] yellow NORMAL: Yellow [facility] CLARITY clear NORMAL: Clear [facility] Specific gravity of Urine by Test strip 1.020 1.001 - 1.030 [facility] pH 6 5 - 9 [facility] al Glucose [Mass/volume] in Urine by Test strip NORM NORMAL: Negat [facility] Bilirubin.total [Presence] in Urine by Test strip NEG NORMAL: Negative [facility] Ketones [Presence] in Urine by Test strip NEG NORMAL: Negative [facility] Protein [Mass/volume] in Urine by Test strip NEG NORMAL: Negat [facility] Nitrite [Presence] in Urine by Test strip NEG NORMAL: Negative [facility] BLOOD NEG NORMAL: Negative [facility] LEUK EST NEG NORMAL: Negative [facility] Urobilinogen [Mass/volume] in Urine by Test strip NOR less casper n 1.0 mg/dL [facility] MICROSCOPIC Not Indicate [facility]spital ID Date Data Source [id number] 12/25/2020 06:52:00 AM EDT [facility] [address] Name Value Range Interpretation Code Description Data Malena rce(s) Supporting Document(s) Bacteria identified in Blood by Culture [facility] NO GROWTH AFTER 5 DAYS ID Date Data Source [id number] 12/26/2020 12:35:00 PM EDT [facility] Name Value Range Interpretation Code Description Data Malena rce(s) Supporting Document(s) CULTURE BLOOD [facility] _CULTURE BLOOD_ TEST PERFORM ED AT [address] [address] CLIA# [id number] SEE SCANNED REPORT{ PRELIM ID Date Data Source [id number] 12/26/2020 12:35:00 PM EDT [facility] Name Value Range Interpretation Code Description Data Malena rce(s) Supporting Document(s) CULTURE BLOOD [facility] spital _CULTURE BLOOD_ TEST PERFORM ED AT [address] [address] CLIA# [id number] SEE SCANNED REPORT{ PRELIM ID Date Data Source [id number] 12/19/2020 03:09:00 PM EDT [facility] Name Value Range Interpretation Code Description Data Malena rce(s) Supporting Document(s) Erythrocyte sedimentation rate by Westergren method 4 mm/hr 0 - 15 [facility] SED RATE REENTER 4 [facility] ID Date Data Source [id number] 12/19/2020 02:59:00 PM EDT [facility] Name Value Range Interpretation Code Description Data Malena rce(s) Supporting Document(s) COMPREHENSIVE METABOLIC PANEL [facility] COMPREHENSIVE METABOLIC PANEL Sodium [Moles/volume] in Serum or Plasma 136 mEq/L 134 - 153 [facility] Potassium [Moles/volume] in Serum or Plasma 4.5 mEq/L 3.6 - 5.0 [facility] Chloride [Moles/volume] in Serum or Plasma 101 mEq/L 98 - 107 [facility] Carbon dioxide, total [Moles/volume] in Serum or Plasma 25 MEQ/L 22 - 30 [facility] Glucose [Mass/volume] in Serum or Plasma 85 MG/DL 70 - 99 [facility] BUN 10 MG/DL 7 - 21 [facility] Creatinine [Mass/volume] in Serum or Plasma 1.0 MG/DL 0.7 - 1.5 [facility] BUN/CREAT 10 8 - 27 [facility] Protein [Mass/volume] in Serum or Plasma 7.0 G/DL 6.3 - 8.2 [facility] Albumin [Mass/volume] in Serum or Plasma 4.0 G/DL 3.9 - 5.0 [facility] Globulin [Mass/volume] in Serum by calculation 3.0 GM/DL 2.4 - 3.2 [facility] A/G RATIO 1.3 0.8 - 2.0 [facility] Calcium [Mass/volume] in Serum or Plasma 8.9 MG/DL 8.4 - 10.2 [facility] Bilirubin.total [Mass/volume] in Serum or Plasma <0.7 MG/DL 0.2 - 1.3 [facility] Alkaline phosphatase [Enzymatic activity/volume] in Serum or Plasma 69 U/L 38 - 126 [facility] Aspartate aminotransferase [Enzymatic activity/volume] in Serum or Plasma 26 U/L 5 - 40 [facility] Alanine aminotransferase [Enzymatic activity/volume] in Seru m or Plasma 18 U/L 7 - 56 [facility] Anion gap 3 in Serum or Plasma 10.0 mmol/L 8.0 - 16.0 [facility] AGE 35 yrs [facility] al NON-AA GFR >60 mL/min [facility] ital AFR AMER GFR >60 mL/min [facility] Male GFR In terprentation 20-49 [...] >32 mL/min Normal ID Date Data Source [id number] 12/19/2020 02:27:00 PM EDT [facility] Name Value Range Interpretation Code Description Data Malena rce(s) Supporting Document(s) CBC W/AUTOMATED DIFF [facility] COMPLETE BLOOD COUNT Leukocytes [#/volume] in Blood by Automated count 3.7 10^3/uL 4.2 - 1 1.0 L [facility] Erythrocytes [#/volume] in Blood by Automated count 4.90 10^6/uL 4. 50 - 6.30 [facility] Hemoglobin [Mass/volume] in Blood 14.9 g/dL 14.0 - 16.0 [facility] Hematocrit [Volume Fraction] of Blood by Automated count 45.4 % 4 1.0 - 51.0 [facility] Erythrocyte mean corpuscular volume [Entitic volume] by Auto mated count 92.7 fL 80.0 - 94.0 [facility] Erythrocyte mean corpuscular hemoglobin [Entitic mass] by Automated count 30.4 pg 27.0 - 34.0 [facility] Erythrocyte mean corpuscular hemoglobin concentration [Mass/volume] by Automated count 32.8 g/dL 31.0 - 36.0 [facility] Erythrocyte distribution width [Ratio] by Automated count 13.3 % 11.5 - 14.8 [facility] Platelets [#/volume] in Blood by Automated count 145 10^3/uL 150 - 45 0 L [facility] Platelet mean volume [Entitic volume] in Blood by Automated count 11.8 fL 7.4 - 10.4 H [facility] Neutrophils/100 leukocytes in Blood by Automated count 53.3 % 37. 0 - 80.0 [facility] Lymphocytes/100 leukocytes in Blood by Manual count 15.5 % 25.0 - 40.0 L [facility] Monocytes/100 leukocytes in Blood by Automated count 8.8 % 3.0 - 8.0 H [facility] Eosinophils/100 leukocytes in Blood by Automated count 17.9 % 0.0 - 7.0 H [facility] Basophils/100 leukocytes in Blood by Automated count 0.5 % 0.0 - 2.0 [facility] %IG 4.0 % 0.0 - [facility] % 0.0 - 0.0 [facility] al Neutrophils [#/volume] in Blood by Automated count 1.99 10^3/uL 2.00 - 6.90 L [facility] Lymphocytes [#/volume] in Blood by Automated count 0.58 10^3/uL 0.60 - 3.40 L [facility] Monocytes [#/volume] in Blood by Automated count 0.33 10^3/uL 0.00 - 0.90 [facility] Eosinophils [#/volume] in Blood by Automated count 0.67 10^3/uL 0.00 - 0.70 [facility] Basophils [#/volume] in Blood by Automated count 0.02 10^3/uL 0.00 - 0.20 [facility] #IG 0.15 10^3/uL 0.00 - 0.10 [facility] #NRBC 0.00 10^3/uL 0.00 - 0.00 [facility] MANUAL DIFF NOT INDICATED [facility] RBC MORPH NOT INDICATED [facility] spital ID Date Data Source [id number] 12/19/2020 02:26:00 PM EDT [facility] Name Value Range Interpretation Code Description Data Malena rce(s) Supporting Document(s) Lactate [Moles/volume] in Serum or Plasma 1.3 MMOL/L 0.2 - 2.2 [facility] ID Date Data Source [id number] 03/12/2020 12:00:00 AM EDT [facility]avar[facility] Patient Name: KWAN MCCULLOUGH,[id number] [facility] Date of : 1985 Date of Exam: 03/12/2020CARO Bruner [id number] Fax: [phone] EXAM: MRI SHOULDER RIGHT W/O&W/CONTRAST ARTHROGRAMCLINICAL INFORMATION: Atraumatic pain and decreased [id number].There are no prior right shoulder MRI examinations [...] Other findings as described above.Accredited by the [employer] in [place].ALE Archibald/Nicolasa you for referring YANELY BOWENS II to our office. Electronically Signed - ZAY TAN DO 03/15/20 15:36 Name Value Range Interpretation Code Description Data Malena rce(s) Supporting Document(s) ID Date Data Source [id number] 03/12/2020 12:00:00 AM EDT [facility] Abe Chavarria [facility] Patient Name: NATHALIE BOWENS II [facility] Date of : 1985 [facility]: [id number] F[facility] [phone] EXAM: INJECTION PROCEDURE FOR SHOULDER ARTHROGRAMRIGHT SHOULDER ARTHROGRAM:The procedure was performed by Jeevan Arellano [facility], under the generalsupervision of Dr. Lino.The [...] 75% reduction in radiation.Dictated by Jeevan Arellano [facility], with Dr. Lino.JYOTI BlountSG/Nicolasa you for referring YANELY BOWENS II to our office. Electronically Signed - RONI LINO MD 03/16/20 18:03 Name Value Range Interpretation Code Description Data Malena rce(s) Supporting Document(s) ID Date Data Source [id number] 03/12/2020 12:00:00 AM EDT [facility] Abe Chavarria [facility] Patient Name: KWAN MCCULLOUGH,NATHALIE [facility] Date of : 1985 Date of Exam: 03/12/2020CARO Bruner [id number]#: Fax: [phone] EXAM: INJECTION PROCEDURE FOR SHOULDER [...] Current Smoker completed Curre nt Smoker eCW1 ([facility]) Smoking 01/19/2021 12:00:00 AM EDT Current Smoker completed Curre nt Smoker eCW1 ([facility]) Smoking 12/17/2020 12:00:00 AM EDT Current Smoker completed Curre nt Smoker eCW1 ([facility]) Smoking 03/15/2020 12:00:00 AM EDT Current Smoker completed Curre nt Smoker eCW1 ([facility]) Smoking 03/15/2020 12:00:00 AM EDT Current Smoker completed Curre nt Smoker eCW1 ([facility]) Smoking 03/15/2020 12:00:00 AM EDT Current Smoker completed Curre nt Smoker eCW1 ([facility]) Smoking 02/27/2020 12:00:00 AM EDT Current Smoker completed Curre nt Smoker eCW1 ([facility]) Vital Signs ID Date Data Source UNK Name Value Range Interpretation Code Description Data Source(s) Body weight 177 [lb_av] 177 [lb_av] eCW1 ([facility]) Body height 68 [in_i] 68 [in_i] eCW1 ([facility]) Body mass index (BMI) [Ratio] 26.91 kg/m2 26.91 kg/m2 eCW1 ([facility]) Heart rate 80 /min 80 /min eCW1 ([facility]) Respiratory rate 18 /min 18 /min eCW1 ([facility]) Body temperature 97.6 [degF] 97.6 [degF] eCW1 ( [facility]) Systolic blood pressure 120 mm[Hg] 120 mm[Hg] e CW1 ([facility]) Diastolic blood pressure 80 mm[Hg] 80 mm[Hg] eCW1 ([facility]) Body weight 176 [lb_av] 176 [lb_av] eCW1 ([facility]) Body height 68 [in_i] 68 [in_i] eCW1 ([facility]) Body mass index (BMI) [Ratio] 26.76 kg/m2 26.76 kg/m2 eCW1 ([facility]) Heart rate 80 /min 80 /min eCW1 ([facility]) Respiratory rate 18 /min 18 /min eCW1 ([facility]) Body temperature 98.1 [degF] 98.1 [degF] eCW1 ( [facility]) Systolic blood pressure 130 mm[Hg] 130 mm[Hg] e CW1 ([facility]) Diastolic blood pressure 82 mm[Hg] 82 mm[Hg] eCW1 ([facility]) Body weight 166.0 [lb_av] 166.0 [lb_av] eCW1 ([facility]) Body height 68 [in_i] 68 [in_i] eCW1 ([facility]) Body mass index (BMI) [Ratio] 25.24 kg/m2 25.24 kg/m2 eCW1 ([facility]) Heart rate 114 /min 114 /min eCW1 ([facility]) Respiratory rate 18 /min 18 /min eCW1 ([facility]) Body temperature 97.9 [degF] 97.9 [degF] eCW1 ( [facility]) Systolic blood pressure 130 mm[Hg] 130 mm[Hg] e CW1 ([facility]) Diastolic blood pressure 80 mm[Hg] 80 mm[Hg] eCW1 ([facility]) Patient Treatment Plan of Care Planned Activity Planned Date Details Description Data Source (s) Sertraline 50 MG Oral Tablet 03/12/2020 12:00:00 AM EDT eCW1 ([facility]) Sertraline 50 MG Oral Tablet 03/12/2020 12:00:00 AM EDT eCW1 ([facility])
[2021-03-15 19:14] LABS: RSV AMPLIFICATION NEGATIVE (NEGATIVE)
== END 2021-03-15 19:42 | disposition home or self-care (01) ==
LOC: M ED 17:39
DX: R05.9 Cough, unspecified (principal); R51.9 Headache, unspecified; Z20.822 Contact with and (suspected) exposure to COVID-19; J45.909 Unspecified asthma, uncomplicated; F32.A Depression, unspecified; F17.200 Nicotine dependence, unspecified, uncomplicated

== ENCOUNTER 2023-07-26 07:08 | Emergency (ER) | payer BC, OTHER ==
[~2023-07-26] VITALS: Ht 172.7 cm; Wt 79.0 kg
[~2023-07-26 07:08] MED LIST changes: +ZOLO100T
[2023-07-26 07:09] VITALS: BP 145/85; TEMP 97.2; O2SAT 98
[2023-07-26] MEDS ORDERED: DIVA500T9 (07:26)
[2023-07-26] MEDS ORDERED: DEXTROAMP-AMPHETAMIN (07:26)
[2023-07-26] MEDS ORDERED: FLUO40CA (07:26)
[2023-07-26] MEDS ORDERED: BUPR300T92 (07:26)
== END 2023-07-26 09:30 | disposition left against medical advice (07) ==
LOC: M ED 07:08
DX: Z53.21 Procedure and treatment not carried out due to patient leaving prior to being seen by health care provider (principal)